=== PATIENT | male | born 1950 | race Caucasian/White ===

== ENCOUNTER 2025-04-15 07:14 | Outpatient (CLI) | payer MEDICARE, MEDICAID, SELFPAY ==
--- NOTE | 2025-04-15 | ECHO_ITS ---
Patient Info Name: Sy Greenfield Age: 74 years : 1950 Gender: Male Ht: 72 in Wt: 196 lbs BSA: 2.14 m2 HR: 66 bpm BP: 153 / 93 mmHg Heart Rhythm: Sinus Rhythm Technical Quality: Good Exam Date: 04/15/2025 7:40 AM Patient Status: O Admit Date: 04/15/2025 Exam Type: CA echo doppler color flow Complete two-dimensional, color flow and Doppler transthoracic echocardiogram is performed. [employer] Cloth: Karime Garcia Attending Provider: Benjie Nunez Summary 1. Left ventricular chamber dimension is normal. 2. Left ventricular systolic function is normal, estimated at 55-60. 3. There is mildly increased left ventricular wall thickness. 4. The left ventricular diastolic function is grade I diastolic dysfunction. 5. Right ventricular systolic function is normal. 6. There is mild mitral valve regurgitation. 7. There is mild tricuspid valve regurgitation. Left Ventricle Left ventricular chamber dimension is normal. Left ventricular systolic function is normal, estimated at 55-60. There is mildly increased left ventricular wall thickness. The left ventricular diastolic function is grade I diastolic dysfunction. Right Ventricle Right ventricular chamber dimension is normal. Right ventricular systolic function is normal. Left Atria Left atrial chamber dimension is normal. Right Atria Right atrial chamber dimension is normal. Atrial Septum Intact interatrial septum visualized by color flow imaging. Aortic Valve The aortic valve is not well visualized. There is no aortic valve stenosis. There is no aortic valve regurgitation. Pulmonic Valve The pulmonic valve is not well visualized. Mitral Valve There is mild mitral valve regurgitation. Tricuspid Valve There is mild tricuspid valve regurgitation. Pericardium/Pleural There is no pericardial effusion. Inferior Vena Cava Normal inferior vena cava with >50% collapse upon inspiration consistent with normal right atrial pressure, 3 mmHg. Aorta The aortic root size at the sinus of Valsalva is normal. Left Ventricular Outflow Tract Name Value Normal LVOT 2D LVOT Diameter 2.0 cm LVOT Doppler LVOT Peak Velocity 117 cm/s LVOT Peak Gradient 5 mmHg LVOT Mean Gradient 3 mmHg LVOT VTI 23 cm LVOT VTI/AV VTI Ratio 0.7 LVOT Stroke Volume 76 ml LVOT CO 4.1 l/min LVOT CI 1.9 l/min/m2 Pulmonic Valve Name Value Normal RVOT Doppler RVOT Peak Velocity 77 cm/s RVOT Peak Gradient 2 mmHg PV Doppler PV Peak Velocity 83 cm/s PV Peak Gradient 3 mmHg Mitral Valve Name Value Normal MV Diastolic Function MV E Peak Velocity 59 cm/s MV A Peak Velocity 83 cm/s MV E/A 0.7 MV Decel Time (PW) 328 ms MV Annular TDI MV E/e' (Septal) 12.1 MV E/e' (Lateral) 7.1 MV E/e' (Average) 9.6 Tricuspid Valve Name Value Normal TV Regurgitation Doppler TR Peak Velocity 233 cm/s TR Peak Gradient 17 mmHg Estimated PAP/RSVP RA Pressure 3 mmHg <=5 PA Systolic Pressure 25 mmHg <36 RV Systolic Pressure 25 mmHg <36 TV Annular TDI TV Lateral Carolynn s' Velocity 13.9 cm/s >=9.5 Aorta Name Value Normal Ascending Aorta Ao Root Diameter (MM) 3.4 cm Ao Root Diam Index (MM) 1.6 cm/m2 Aortic Valve Name Value Normal AV Doppler AV Peak Velocity 169 cm/s AV Peak Gradient 11 mmHg AV Mean Gradient 6 mmHg AV VTI 35 cm AV Area (Cont Eq VTI) 2.2 cm2 >=3.0 AV Area (Cont Eq James) 2.3 cm2 AV DI (James) 0.69 AV Regurgitation 2D LVOT Area 3.3 cm2 Ventricles Name Value Normal LV Dimensions 2D/MM IVS Diastolic Thickness (2D) 0.9 cm 0.6-1.0 LVID Diastole (2D) 5.5 cm 4.2-5.8 LVIW Diastolic Thickness (2D) 1.0 cm 0.6-1.0 LVID Systole (2D) 3.5 cm 2.5-4.0 LVOT Diameter 2.0 cm LV Mass (2D Cubed) 200.85 g 88.00-224.00 LV Mass Index (2D Cubed) 94 g/m2 49-115 Relative Wall Thickness (2D) 0.37 <=0.42 LV Fractional Shortening/Ejection Fraction 2D/MM LV Fractional Shortening (2D) 37 % 25-43 LV EF (2D Teichholz) 66 % LV Diastolic Volume (4C MOD) 66 ml LV EF (4C MOD) 60 % LV Diastolic Volume (2C MOD) 89 ml LV EF (2C MOD) 68 % LV Diastolic Volume (BP MOD) 78 ml 62-150 LV Diastolic Volume Index (BP MOD) 36 ml/m2 34-74 LV Systolic Volume (BP MOD) 28 ml 21-61 LV Systolic Volume Index (BP MOD) 13 ml/m2 11-31 LV EF (BP MOD) 63 % 52-72 LV Diastolic Length (4C) 8.4 cm LV Systolic Length (4C) 6.7 cm LV Stroke Volume (4C MOD) 40 ml Atria Name Value Normal LA Dimensions LA Dimension (MM) 4.0 cm 3.0-4.0 LA Volume (4C A-L) 68 ml LA Volume (BP A-L) 67 ml RA Dimensions RA Systolic Major [place] Length (4C) 5.6 cm 2.1-2.7 RA Area (4C) 17.1 cm2 <=18.0 Report Signatures
--- OUTSIDE RECORDS SUMMARY | 2025-04-15 07:24 | XMS_ITS | Data Portability ---
Author Organization [facility] Address [address] [facility] [place] [address] Care Team Providers Care Tissue Technician Name Role Phone DOMINICK GUZMAN Primary Care Provider Unavailab le Assessment Encounter Date Assessment Date Assessment LastModified by Organization Details LastModified Time 06/16/2024 06/16/2024 Pt's case was discussed w/resident. Documentation was reviewed, and I agree w/resident's note. Dr. Holt Not available 06/22/2024 08:10:00 Plan of Treatment Reminders Order Date Submit Date Provider Last Modified By Organization Details Last Modified Time Details Appointments ANY 15 2024 08:45A M DOMINICK GUZMAN MD Not available Not available Not available Lab CMP, serum or plasma 2023 JACOBYJASMYN Iqbal, [address], [place], [address], 09/06/2024 13:10:24 lipid panel, serum 2023 024 JACOBYJASMYN Iqbal, [address], [place], [address], 09/06/2024 13:10:22 vitamin B12 + folate, serum or blood 2023 024 JACOBY Farida, [address], [address], [place], [address], 09/06/2024 13:10:26 TSH, ultra-sen sitive, serum 2023 024 JACOBYJASMYN Iqbal, [address], [address], [place], [address], 09/06/2024 13:10:23 noninvasi ve colorecta l cancer DNA + occult blood screening , QL, stool 2023 024 [place] [employer] (Cologuard Orders Only), [address], [address], [place], [address], 07/04/2024 17:09:20 Referral urologist referral 2023 024 [facility], [address] [facility], [address], [place], [address], 08/19/2024 16:01:27 Procedures None recorded. Surgeries None recorded. Imaging None recorded. Medication Orders Wellbutri n XL 150 mg 24 hr tablet, extended release 2023 [place] [id number], [address], [place], [place], [id number], 09/05/2024 10:06:16 Wellbutri n XL 150 mg 24 hr tablet, extended release 2023 024 [place] [id number], [address], [place], [place], [id number], 06/16/2024 20:32:02 Patient TargetsNo targets recorded. Patient Instructions Encounter Date Encounter Id Patient Instructions Last Modified By Organization Details Last Modified Time 06/16/2024 [id number] learning about mood disorders rgriffon Not available 06/16/2024 20:31:56 09/05/2024 [id number] learning about high blood pressure rgriffon Not available 09/05/2024 10:00:05 neuropathic pain : care instructions rgriffon Not available 09/05/2024 10:00:05 Attending Physician Attestation I did not personally see or examine the patient with the resident. I was physically present to provide indirect supervision through entire encounter. I have reviewed the documentation and agree with the history, physical findings, work-up, and medical decision making as recorded. Krystin Mckinley MD mmetias Not available 09/05/2024 11:42:27 Reason for Referral Urologist Referral for Erect ile dysfunction Referring Physician: Dominick Guzman, Marine Farmer, Encounter Date: 06/16/2024 Results Created Date Observation Date Name Description Value Unit Range Abnormal Flag Note LastModifiedBy Organization Detail LastModifiedTime 07/06/20 24 07/06/2024 COLOG UARD cologuard result reportable Sample Could Not Be Proces sed n/a The speci men recei edgardo by the labor atory was not accep table for testi ng. The patie nt will be conta cted to initi ate a new sampl e colle ction . Not Available [employer] (Cologuard Orders Only) [address], [place], [address], 07/04/2024 17:09:19 07/14/20 24 07/14/2024 COLOG UARD cologuard result reportable Negati ve negati ve normal NEGAT LUIS TEST RESUL T. A negat luis Colog uard resul t indic ates a low likel ihood that a color ectal cance r (CRC) or advan patt adeno ma (priscila omato us polyp s with more advan patt pre-m align ant featu res) is prese nt. The chanc e that a perso n with a negat luis Colog uard test has a color ectal cance r is less than 1 in 1500 (nega tive predi ctive value >99.9 %) or has an advan patt adeno ma is less than 5.3% (nega tive predi ctive value 94.7% ). These data are based on a prosp ectiv e cross -sect ional study of 10,00 0 indiv idual s at [place] risk for color ectal cance r who were scree kori with both Colog uard and colon oscop y. (Donta Piedra et al, N Engl J Med 2014; 370(1 4):12 86-12 97) The link l value (refe rence range ) for this assay is negat luis. COLOG UARD RE-SC REEXIOMARA NG RECOM MENDA TION: Perio dic color ectal cance r scree fanny is an impor tant part of preve ntive healt hcare for asymp tomat ic indiv idual s at [facility] risk for color ectal cance r. Follo wing a negat luis Colog uard resul t, the Ameri can Cance r Socie ty and U.S. Multi -Soci ety Task Force scree afnny guide lines recom mend a Colog uard re-sc reeni ng inter matt of 3 years . Refer ences : Ameri can Cance r Socie ty Guide line for Color ectal Cance r Scree fanny: https ://andrea w.can cer.o rg/ca ncer/ colon -rect al-ca ncer/ detec tion- diagn osis- stagi ng/ac s-rec ommen datio ns.ht ml.; Bradly BENTLEY, Brandie ANDERSON, Haim CH, Color ectal Cance r Scree fanny: Recom menda tions for Physi cians and Patie nts from the U.S. Multi -Soci ety Task Force on Color ectal Cance r Scree fanny , Am J Gastr yanet emery y 2017; 112:1 016-1 030. TEST DESCR IPTIO N: Mullin site algor ithmi c ar sis of stool DNA-b ioabhishek kers with hemog lobin immun oassa y. Quant itati ve value s of indiv idual bioma rkers are not repor table and are not assoc iated with indiv idual bioma rker resul t refer ence range s. Colog uard is inten ded for color ectal cance r scree fanny of adult s of eithe r sex, 45 years or older , who are at [facility] for color ectal cance r (CRC) . Colog uard has been appro edgardo for use by the U.S. FDA. The perfo rmanc e of Colog uard was estab lishe d in a cross secti onal study of [facility] adult s aged 50-84 . Colog uard perfo rmanc e in patie nts ages 45 to 49 years was estim ated by sub-g roup ar sis of near- age group s. Colon oscop ies perfo rmed for a posit luis resul t may find as the most clini serge signi iona t lesio n: color ectal cance r [4.0% ], advan patt adeno ma (incl uding sessi le surendra nellie polyp s great er than or equal to 1cm diame ter) [20%] or non- advan patt adeno ma [31%] ; or no color ectal neopl aayush [45%] . These estim ates are deriv ed from a prosp ectiv e cross -sect ional scree fanny study of 0 indiv idual s at [facility] for color ectal cance r who were scree kori with both Colog uard and colon oscop y. (Donta Ortiz al, N Engl J Med 2014; 370(1 4):12 86-12 97.) Colog uard may produ ce a false negat luis or false posit luis resul t (no color ectal cance r or preca ncero us polyp prese nt at colon oscop y follo w up). A negat luis Colog uard test resul t does not guara ntee the absen ce of CRC or advan patt adeno ma (pre- cance r). The curre nt Colog uard scree fanny inter matt is every 3 years . (Amer ican Cance r Socie ty and U.S. Multi -Soci ety Task Force ). Colog uard perfo rmanc e data in a 0 patie nt pivot al study using colon oscop y as the refer ence metho d can be acces sed at the follo wing locat ion: www.e xactl abs.c om/re dario . Addit ional descr iptio n of the Colog uard test proce ss, warni ngs and preca ution s can be found at www.c beverly wu.c om. Not Available [employer] (Cologuard Orders Only) [address], [place], [address], 07/19/2024 17:49:55 09/05/20 24 09/06/2024 LIPID PANEL cholesterol, total 122 mg/dL 100-19 9 Not Available [facility] ([facility]) [address] [place], [address], 09/06/2024 13:10:22 09/05/20 24 09/06/2024 LIPID PANEL triglyceride s 58 mg/dL 0-149 Not Available [facility] ([facility]) [address] [place], [address], 09/06/2024 13:10:22 09/05/20 24 09/06/2024 LIPID PANEL HDL cholesterol 47 mg/dL >39 Not Available [facility] ([facility]) [address] [place], [address], 09/06/2024 13:10:22 09/05/20 24 09/06/2024 LIPID PANEL VLDL cholesterol chava 13 mg/dL 5-40 Not Available [facility] ([facility]) [address] [place], [address], 09/06/2024 13:10:22 09/05/20 24 09/06/2024 LIPID PANEL LDL chol calc ([facility]) 62 mg/dL 0-99 Not Available [facility] ([facility]) [address] [place], [address], 09/06/2024 13:10:22 09/05/20 24 09/06/2024 TSH REFLE X TO T4 TSH 1.350 uIU/m L 0.450- 4.500 Not Available [facility] ([facility]) [address] [place], [address], 09/06/2024 13:10:23 09/05/20 24 09/06/2024 CMP14 +EGFR glucose 88 mg/dL 70-99 Not Available [facility] ([facility]) [address] [place], [address], 09/06/2024 13:10:24 09/05/20 24 09/06/2024 CMP14 +EGFR BUN 24 mg/dL 8-27 Not Available [facility] ([facility]) [address] [facility], [place], [address], 09/06/2024 13:10:24 09/05/20 24 09/06/2024 CMP14 +EGFR creatinine 1.17 mg/dL 0.76-1 .27 Not Available [facility] ([facility]) [address] [facility], [place], [address], 09/06/2024 13:10:24 09/05/2009/06/2024 CMP14 +EGFR eGFR 66 mL/mi n/1.7 3 >59 Not Available [facility] ([facility]) [address] [facility], [place], [address], 09/06/2024 13:10:24 09/05/20 24 09/06/2024 CMP14 +EGFR BUN/creatini ne ratio 21 10-24 Not Available [facility] ([facility]) [address] [facility] [place], [address], 09/06/2024 13:10:24 09/05/20 24 09/06/2024 CMP14 +EGFR sodium 140 mmol/ L 134-14 4 Not Available [facility] ([facility]) [address] [facility], [place], [address], 09/06/2024 13:10:24 09/05/2009/06/2024 CMP14 +EGFR potassium 4.8 mmol/ L 3.5-5. 2 Not Available [facility] ([facility]) [address] [place], [address], 09/06/2024 13:10:24 09/05/20 24 09/06/2024 CMP14 +EGFR chloride 106 mmol/ L 96-106 Not Available [facility] ([facility]) [address] [place], [address], 09/06/2024 13:10:24 09/05/2009/06/2024 CMP14 +EGFR carbon dioxide, total 24 mmol/ L 20- Not Available [facility] ([facility]) [address] [facility], [place], [address], 09/06/2024 13:10:24 09/05/2009/06/2024 CMP14 +EGFR calcium 9.4 mg/dL 8.6-10 .2 Not Available [facility] ([facility]) [address] [facility], [place], [address], 09/06/2024 13:10:24 09/05/2009/06/2024 CMP14 +EGFR protein, total 6.9 g/dL 6.0-8. 5 Not Available [facility] ([facility]) [address] [facility], [place], [address], 09/06/2024 13:10:24 09/05/2009/06/2024 CMP14 +EGFR albumin 4.1 g/dL 3.8-4. 8 Not Available [facility] ([facility]) [address] [facility], [place], [address], 09/06/2024 13:10:24 09/05/2009/06/2024 CMP14 +EGFR globulin, total 2.8 g/dL 1.5-4. 5 Not Available [facility] ([facility]) [address] [place], [address], 09/06/2024 13:10:24 09/05/2009/06/2024 CMP14 +EGFR bilirubin, total 0.4 mg/dL 0.0-1. 2 Not Available [facility] ([facility]) [address] [facility], [place], [address], 09/06/2024 13:10:24 09/05/2009/06/2024 CMP14 +EGFR alkaline phosphatase 69 IU/L 44-121 Not Available [facility] ([facility]) [address] [facility], [place], [address], 09/06/2024 13:10:24 09/05/20 24 09/06/2024 CMP14 +EGFR AST (SGOT) 17 IU/L 0-40 Not Available [facility] ([facility]) [address] [facility], [place], [address], 09/06/2024 13:10:24 09/05/20 24 09/06/2024 CMP14 +EGFR ALT (SGPT) 15 IU/L 0-44 Not Available [facility] ([facility]) [address] [facility], [place], [address], 09/06/2024 13:10:24 09/05/20 24 09/06/2024 VITAM IN B12 AND FOLAT E vitamin B12 465 pg/mL 232-12 45 Not Available [facility] ([facility]) [address] [facility], [place], [address], 09/06/2024 13:10:26 09/05/2009/06/2024 VITAM IN B12 AND FOLAT E folate (folic acid), serum 10.3 NG/mL >3.0 A serum folat e lei ntrat ion of less than 3.1 ng/mL is consi dered to repre sent clini chava defic iency . Not Available [facility] ([facility]) [address] [facility], [place], [address], 09/06/2024 13:10:26 Result Notes None recorded. Problems Name Problem SNOMED Code Status Onset Date Resolution Date Notes Provider Name and Address Organization Details Recorded Time Hyperlipid emia 99190406 Active 2023 DOMINICK GUZMAN MD Attn: Treva pope,[address], [place], [address], [facility] 14:18:06 Cerebrovas cular accident 307294471 Active 2023 DOMINICK GUZMAN MD Attn: Treva pope,[address] [facility], [place], [address], [place] [facility] 4 14:18:36 Basal cell carcinoma of skin 203515622 Active 2023 DOMINICK GUZMAN MD Attn: Treva pope,[address] [facility], [place], [address], [place] [facility] 4 21:31:07 Osteoarthr itis 300077968 Active 2023 DOMINICK GUZMAN MD Attn: Treva pope,[address] [facility], [place], [address], [place] [facility] 4 11:01:15 Coronary arterioscl erosis 21300260 Active 2023 DOMINICK GUZMAN MD Attn: Treva pope,[address] [facility], [place], [address], [place] [facility] 4 11:02:34 Essential hypertensi on 61467447 Active 2023 DOMINICK GUZMAN MD Attn: Treva pope,[address] [facility], [place], [address], [place] - [facility] 4 11:02:48 Screening due 525135007 Active 2023 Pneumonia vaccines UTD cologuard neg 2020, repeat in 3 years AAA screening neg 11/27/2016 Hep C screening neg 07/2018 * shingles vaccine needed Tdap due 2027 DOMINICK GUZMAN MD Attn: Sandireynold pope,[address] [facility], [place], [address], [place] - [facility] 4 11:03:14 Problem Notes None recorded. Procedures Surgical History Date Name Laterality Status Provider Name and Address Organization Details Recorded Time 1 total knee replacement completed DOMINICK GUZMAN MD Attn: Accounting,[address] [facility], [place], [address], [place] [facility] 06/16/2024 14:23:09 Imaging Results None recorded. Procedure Notes None recorded. Medical Equipment None Reported. Allergies No known drug allergies Medications Name Sig Start Date Stop Date Status Note LastModified by Organization Details LastModified Time atorvasta tin 80 mg tablet TAKE 1 TABLET BY MOUTH EVERY DAY active Not Available Not Available No t Available carvedilo l 12.5 mg tablet TAKE 1 TABLET BY MOUTH TWICE DAILY active Not Available Not Available No t Available famotidin e 10 mg tablet Take 1 tablet every day by oral route. active Not Available Not Available No t Available clopidogr el 75 mg tablet TAKE 1 TABLET BY MOUTH EVERY DAY 06/16 completed Not Available Not Available Not Available amlodipin e 10 mg tablet 2023 active Not Available Not Available Not Avai lable losartan 100 mg tablet TAKE 1 TABLET BY MOUTH DAILY active Not Available Not Available No t Available naproxen 500 mg tablet TAKE 1 TABLET BY MOUTH TWICE DAILY active Not Available Not Available No t Available ezetimibe 10 mg tablet TAKE 1 TABLET BY MOUTH DAILY active Not Available Not Available No t Available Wellbutri n XL 150 mg 24 hr tablet, extended release Take 1 tablet(s ) every day by oral route. 2024 active Not Available Not Available Not Avai lable saw palmetto 450mg capsule 2 caps twice daily. active Not Available Not Available No t Available tadalafil 40mg tablet prn active Not Available Not Available No t Available icosapent ethyl 1 gram capsule TAKE 2 CAPSULES BY MOUTH TWICE DAILY active Not Available Not Available No t Available Farxiga 10 mg tablet TAKE 1 TABLET BY MOUTH ONCE DAILY 06/16 completed Not Available Not Available Not Available Jardiance 10 mg tablet TAKE 1 TABLET BY MOUTH DAILY active Not Available Not Available No t Available Xarelto 2.5 mg tablet TAKE 1 TABLET BY MOUTH TWICE DAILY active prescrib ed by cardio Not Available Not Available Not Available Vitals Date Recorded Body height Body mass index (BMI) Body weight Body temperature Heart rate Respiratory rate Systolic blood pressure Diastolic blood pressure Provider Name and Address Organization Details Last Updated DateTime 4 182.88 cm 26.4 kg/m2 84852.7 2 g 98.7 [degF] 59 /min 18 /min 155 mm[Hg] 78 mm[Hg] Yuri Thomas [place] - [facility] 4 14:05:04 Date Recorded Body height Body mass index (BMI) Body weight Body temperature Heart rate Respiratory rate Systolic blood pressure Diastolic blood pressure Provider Name and Address Organization Details Last Updated DateTime 182.88 cm 26.6 kg/m2 00751.5 g 98.3 [degF] 68 /min 18 /min 140 mm[Hg] 80 mm[Hg] Huma Mustafa [place] - [facility] 08:36:05 Social History Question Answer Notes LastModified by [employer] Details LastModified Time Tobacco Smoking Status Former Smoker quit in 89 bc of stroke. Yuri Thomas MA null, [place] - [facility] 06/16/2024 14:02:53 What Was The Date Of Your Most Recent Tobacco Screening? 09/05/2024 Information not available 09/05/2024 At What Age Did You Start Smoking Tobacco? 12 Information not available 06/16/2024 How Much Tobacco Do You Smoke? 3+ PPD Information not available 06/16/2024 Has Tobacco Cessation Counseling Been Provided? Yes Information not available 09/05/2024 On What Date Was Tobacco Cessation Counseling Provided? 09/05/2024 Information not available 09/05/2024 Sex: Male Functional Status Question Answer Note LastModified by [employer] Details LastModified Time Do you use any illicit or recreational drugs? Yes medical marijuna Information not available 06/16/2024 Do you or have you ever used any other forms of tobacco or nicotine? No Information not available 06/16/2024 What is your level of alcohol consumption? Occasional Information not available 06/16/2024 Mental Status None recorded. Family History Relationship Description Onset Age of this Age Resolved Age Notes LastModified by Organization Details LastModified Time Father Heart disease etodaroma Not available 2023 14:00:35 Father Total replacement of hip etodaroma Not available 2023 14:01:08 Mother Asthma in etodaroma Not available 06/16/2024 14:01:30 Medical History No medical history recorded. Immunizations Vaccine Type Date Status Note Provider Nam e and Address Organization Details Recorded Time Influenza, split virus, quadrivalent, preservative 7 completed KRYSTIN MCKINLEY MD Attn: Accounting,[address] [facility], [place], [place], [address] [place] [address], [place] [facility] 09/05/2024 11:29:21 Influenza, split virus, quadrivalent, preservative 8 completed KRYSTIN MCKINLEY MD Attn: Accounting,[address] [facility], [place], [place], [address] [place] [address], [place] [facility] 09/05/2024 11:29:21 Influenza, adjuvanted, trivalent, PF 9 completed KRYSTIN MCKINLEY MD Attn: Accounting,[address] [facility], [place], [address] [place] [address], [place] [facility] 09/05/2024 11:29:21 zoster recombinant 2 completed KRYSTIN MCKINLEY MD Attn: Accounting,[address] [facility], [place], [address] [place] [address], [place] [facility] 09/05/2024 11:29:21 zoster recombinant 2 completed KRYSTIN MCKINLEY MD Attn: Accounting,[address] [facility], [place], [address] [place] [address], [place] [facility] 09/05/2024 11:29:21 Influenza, high-dose, quadrivalent, PF 2 completed KRYSTIN MCKINLEY MD Attn: Accounting,[address] [facility], [place], [address] [place] [address], [place] [facility] 09/05/2024 11:29:21 Influenza, high-dose, quadrivalent, PF 3 completed KRYSTIN MCKINLEY MD Attn: Accounting,[address] [facility], [place], [address] [place] [address], [place] [facility] 09/05/2024 11:29:21 Influenza, adjuvanted, quadrivalent, PF 1 completed KRYSTIN MCKINLEY MD Attn: Accounting,[address] [facility], [place], [address] [place] [address], [place] [facility] 09/05/2024 11:29:21 COVID-19, mRNA, LNP-S, PF, 100 mcg/0.5mL dose or 50 mcg/0.25mL dose 1 completed KRYSTIN MCKINLEY MD Attn: Accounting,[address] [facility], [place], [address] [place] [address], [place] [facility] 09/05/2024 11:29:21 COVID-19, mRNA, LNP-S, PF, 100 mcg/0.5mL dose or 50 mcg/0.25mL dose 1 completed KRYSTIN MCKINLEY MD Attn: Accounting,[address] [facility], [place], [address] [place] [address], [place] [facility] 09/05/2024 11:29:21 COVID-19, mRNA, LNP-S, PF, 100 mcg/0.5mL dose or 50 mcg/0.25mL dose 2 completed KRYSTIN MCKINLEY MD Attn: Accounting,[address] [facility], [place], [address] [place] [address], [place] [facility] 09/05/2024 11:29:21 COVID-19, mRNA, LNP-S, PF, 100 mcg/0.5mL dose or 50 mcg/0.25mL dose 1 completed KRYSTIN MCKINLEY MD Attn: Accounting,[address] [facility], [place], [address] [place] [address], [place] [facility] 09/05/2024 11:29:21 COVID-19, mRNA, LNP-S, bivalent, PF, 50 mcg/0.5 mL or 25mcg/0.25 mL dose 2 completed KRYSTIN MCKINLEY MD Attn: Accounting,[address] [facility], [place], [address] [place] [address], [place] [facility] 09/05/2024 11:29:21 COVID-19, mRNA, LNP-S, PF, jojo-sucrose, 30 mcg/0.3 mL 3 completed KRYSTIN MCKINLEY MD Attn: Accounting,[address] [facility], [place], [address] [place] [address], [place] [facility] 09/05/2024 11:29:21 pneumococcal polysaccharide PPV23 8 completed KRYSTIN MCKINLEY MD Attn: Accounting,[address] [facility], [place], [place], [address] [place] [address], [facility] 09/05/2024 11:29:21 Tdap 1 completed KRYSTIN MCKINLEY MD Attn: Accounting,[address] [facility], [place], [address] [place] [address], [place] [facility] 09/05/2024 11:29:21 Pneumococcal conjugate PCV 13 9 completed KRYSTIN MCKINLEY MD Attn: Accounting,[address] [facility], [place], [address] [place] [address], [facility] 09/05/2024 11:29:21 Influenza, high-dose, trivalent, PF 5 completed KRYSTIN MCKINLEY MD Attn: Accounting,[address] [facility], [place], [address] [place] [address], [facility] 09/05/2024 11:29:21 Influenza, high-dose, trivalent, PF 8 completed KRYSTIN MCKINLEY MD Attn: Accounting,[address] [facility], [place], [address] [place] [address], [facility] 09/05/2024 11:29:21 Influenza, split virus, trivalent, PF 0 completed KRYSTIN MCKINLEY MD Attn: Accounting,[address] [facility], [place], [address] [place] [address], [place] [facility] 09/05/2024 11:29:21 Pneumococcal Conjugate, unspecified formulation 6 completed KRYSTIN MCKINLEY MD Attn: Accounting,[address] [facility], [place], [address] [place] [address], [place] [facility] 09/05/2024 11:29:21 RSV, recombinant, protein subunit RSVpreF, adjuvant reconstituted, 0.5 mL, PF 4 completed KRYSTIN MCKINLEY MD Attn: Accounting,[address] [facility], [place], [address] [place] [address], [place] [facility] 09/05/2024 11:29:34 COVID-19, mRNA, LNP-S, PF, jojo-sucrose, 30 mcg/0.3 mL 4 completed KRYSTIN MCKINLEY MD Attn: Accounting,[address] [facility], [place], [address], [facility] - [facility] 09/05/2024 11:29:34 Influenza, high-dose, trivalent, PF 4 completed KRYSTIN MCKINLEY MD Attn: Accounting,[address] [facility], [place], [address], [facility] 09/05/2024 11:29:34 Past Encounters Encounter ID Performer Location Encounter Start Date Encounter Closed Date Diagnosis/Indication Diagnosis SNOMED-CT Code Diagnosis ICD10 Code Diagnosis Note [id number] MD Brien Dunham 14 IM 4 [facility] [facility] [place] [address] 06/16/2024 13:37:59 06/23/2024 08:40:25 Screening for malignant neoplasm of colon [id number] Z12.11 Cologuard normal in 2020. Normal colonoscop y over 10 years ago. No fam hx of colon cancer. Would like to repeat cologuard. Depressive disorder [id number] F32.A Mood has been down since dad almost a year ago. Also mentions mood is down due to erectile dysfunctio n. PHQ-9 7 and IZABELA-7 15. Declines therapy. Would like to start a medication . Will start wellbutrin as less likely to cause sexual side effects. Will follow up in a couple of months. Erectile dysfunction [id number] F52.21 No known diabetes or artery disease although based on med record possibly artery disease. Will need to see records. Per med list does appear to have artery disease. Phosphodie sterase inhibitors have not helped. Will send referral to urology. Essential hypertension [id number] I10 Takes carvedilol 12.5 mg and losartan 100 mg daily. BP elevated today. Will monitor at home call if elevated. [id number] MD Brien LUCAS 14 IM [address] [facility] [place] [address] 09/05/2024 08:20:44 09/12/2024 10:45:17 Depressive disorder [id number] F32.A Mood has been down since dad almost a year ago. Also mentions mood is down due to erectile dysfunctio n.Started Wellbutrin 150 mg 06/16. Here for follow up. Has noticed some improvemen t. Feels more relaxed vs on edge. Was started due to less potential for sexual side effects.PH Q-9 9 from 7; IZABELA-7 9 from 15. Coronary arteriosclerosis [id number] I25.10 Previous hx of CAD. Per patient is following with Dr. Nunez. No record found. Will check cholestero l panel. continue atorvastat in 80 mg dialy and ezetimibe 10 mg daily. Neuropathy [id number] G62 .9 Subjective numbness in toes of right foot and ball of foot. Possibly nerve entrapment syndrome in the foot or ankle. Possibly medial plantar nerve entrapment given distributi on of symptoms. Numbness does not radiate down leg. At increased risk due to significan t diffuse arthritis. No new activities that are aggravatin g. Less likely radiculopa thy from lumbar area. No concern for myelopathy . No muscle weakness. Reflexes are symmetric. No foot drop. Did offer PT but is doing home exercises and stretches that he found online. Discussed will call for continued symptoms. Could consider PT or nerve conduction studies. Symptomati serge could treat with gabapentin but will try conservati ve therapy first. Essential hypertension [id number] I10 Takes carvedilol 12.5 mg, amlodipine 10 mg and losartan 100 mg daily. BP elevated today. At home has been elevated in the 160s systolic. Here is 140/80. Will check BMP and if kidney function is normal will start chlorthali done. Health Concerns Section Related Observation LastModified by Organization Detai ls LastModified Time None Recorded Concern Status LastModified by Organization Details LastModified Time None Recorded Advance Directives Directive None Recorded Payers Insurance Date Sequence Insurance Name Policy Number Policy Kaplan Covered Member ID Kaplan Member ID Guarantor Name 09/05/2024 3 [place] Sy Greenfield [id number] Sy Greenfield 06/26/2024 3 [place] Sy Greenfield [id number] Sy Greenfield 06/26/2024 1 [place] Sy Greenfield [id number] Sy Greenfield 09/12/2024 1 [facility] (MEDICARE REPLACEMENT/AD VANTAGE - HMO) [id number] Sy Greenfield [id number] Sy Greenfield 08/26/2024 3 [place] Sy Greenfield [id number] Sy Greenfield 09/05/2024 2 [place] WHEN MEDICARE OR MEDICARE REPLACEMENT PRIMARY) Sy Greenfield [id number] Sy Greenfield Notes Date Note Type Note Provider Name and Address Organization Details Recorded Time 4 text/html Sy is a 73 year old man with history of hyperlipidemia, hypertension, prior CVA, on anticoagulation who presents to the clinic to establish care. Reports his prior PCP no longer takes his insurance. He also sees cardiology. Denies hx of atrial fibrillation. Mentions he had a stroke in 1990 and was told it was due to his heart valve. Denies hx of heart valve replacement. Record releases were signed. Current issuesArthritisReports arthritis pain. R knee, hands, right shoulder and back. Back is most problematic. [place] and is quite active. 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 Hx of left knee replacement in 1990 due to OA. Has been taking 500 mg of naproxen and 500 mg of tylenol in the AM and PM but states pain wakes him up at about 4 AM from sleep. Denies having tried physical therapy. No numbness or weakness in the legs. Erectile dysfunctionHas been an issue for the past 7 years. Reports difficulties achieving and maintaining an erection. Tried viagra but reported headaches. Has been using cialis but reports it doesn't help much. Denies hx of diabetes. Denies hx of heart disease (although is on jardiance?). Denies having seen urology in the past but mentions at 1 point was using an external penile pump. DepressionMentions his dad in the fall which has been stressful but also complicated by trying to manage his property. Has been restless and having difficulty focusing. Denies wanting to speak to therapist. Does want to start a medication. No SI. ADLsNo problems with bathing, dressing, cleaning, cooking, driving.No falls in the past year. Glen Holt MD Attn: Accounting,[address] [facility], [place], [address], [facility] 06/22/2024 08:10:12 4 text/html Sy is a 73 y/o M with hx of CAD, OA seeing pain management, on chronic xarelto, depression, hypertension, lumbar spondylosis, remote hx of CVA in the 90s, erectile dysfunction and prior elevated PSA following with urology who presents to the clinic for follow up of depression. Depression-Doing better after starting wellbutrin. Has been taking daily. Would like to continue medication. Hypertension- Home readings have been up to 160s systolic. Occasionally less than 140 systolic. Is taking all medications and actually is taking amlodipine 10 mg as well. Also taking carvedilol 12.5 mg dialy. Per home reading pulse is typically in the 60s and occasionally in the 50s. No syncope or light headedness. Numbness in left foot- States over the past couple of weeks has been having numbness in toes and ball of foot. Has never had this before. Denies muscle weakness. Erectile dysfunction- Did follow up with urology [employer] and was recommended to have tadalafil 5 mg daily and 5-15 mg PRN. States occasionally will help but not always. Per chart will consider TriMix at follow up in a couple of months if no improvement. Patient care teamCardiology- SerotaPain management- ?Urology- JOSE Savage MD Attn: Accounting,[address] [place], [address], [facility] 09/10/2024 16:02:40
--- OUTSIDE RECORDS SUMMARY | 2025-04-15 07:24 | XMS_ITS | Clinical Summary ---
Author Organization [facility] Address [address] [place] [address] Care Team Providers Care Senior Actuarial Analyst Name Role Phone Mayank Rowland MD Unavailable [phone] Source Comments [facility],non-owned Affiliates and Associated Physician Practices is amultiple site organization consisting of ambulatory clinics and hospital sitesin [place], [place], [place] and [place]. This disclosure is being madepursuant to the Care Everywhere program and may not contain all information available regarding this patient. Last updated 18.[facility] Allergies No known active allergies Medications * Be aware that medications may not be up to date on this document. Alwaysverify current medications with the patient. atorvastatin (LIPITOR) 10 MG tablet Take 10 mg by mouth at bedtime Active BABY ASPIRIN PO Take 81 mg by mouth once daily Active Acetaminophen (TYLENOL EXTRA STRENGTH PO) Take 1 Tab by mouth every 6 hours as needed Active fluticasone propionate (FLONASE) 50 MCG/ACT nasal spray 2 6 Active methylPREDNISol one (MEDROL DOSEPAK) 4 MG tabletIndicatio ns:Inflammation Take as directed Reasons: Inflammation 21 Tab 6 Active spironolactone (ALDACTONE) 25 MG tabletIndicatio ns:Pes anserinus bursitis of right knee Take 25 mg by mouth once daily 6 Active nabumetone (RELAFEN) 750 MG tablet Take 1 tablet by mouth 2 times daily LAST REFILL UNTIL SEEN IN OFFICE - NEEDS APPOINTMENT 60 tablet 8 Active Active Problems Problem Noted Date Diagnosed Date Pes anserine bursitis 09/18/2016 Primary osteoarthritis of right knee 02/03/2016 Social History Tobacco Use Types Packs/Day Years Used Date Smoking Tobacco: Unknown Alcohol Use Standard Drinks/Week Comments Not Asked 0 (1 standard drink = 0.6 oz pur e alcohol) Sex and Gender Information Value Date Recorded Sex Assigned at Not on file Legal Sex Male 11:44 AM [employer] Gender Identity Not on file Sexual Orientation Not on file Last Filed Vital Signs Vital Sign Reading Time Taken Comments Blood Pressure - - Pulse - - Temperature - - Respiratory Rate - - Oxygen Saturation - - Inhaled Oxygen Concentration - - Weight 111.1 kg (245 lb) 02/03/2016 2:53 PM CDT Height 182.9 cm (6') 02/03/2016 2:53 PM CDT Body Mass Index 33.23 02/03/2016 2:53 PM CDT Plan of Treatment Health Maintenance Due Date Last Done Comments COLOGUARD (AGES 45-75) - COL ON CA SCREENING 1950 COLON MONITORING 1950 COLONOSCOPY - COLON CA SCREENING 1950 CT COLONOGRAPHY - COLON CA SCREENING 1950 Colorectal Cancer Screening 1950 FIT - COLON CA SCREENING 1950 FLEX SIG - COLON CA SCREENING 1950 MEDICARE AWV 12 MONTHS 1950 HEPATITIS C SCREENING 10/02/1969 DTAP/TDAP/TD VACCINES (1 - Tdap) 1970 PNEUMOCOCCAL VACCINE 50+ (1 of 1 - PCV) 2001 ZOSTER VACCINE (1 of 2) 2001 COVID-19 VACCINE ( - 2023-2 5 season) 2024 DEPRESSION SCREENING 10/29/2024 INFLUENZA VACCINE (Season Ended) 2025 Respiratory Syncytial Virus (RSV) Vaccine Pt: or over 60 yrs (1 - 1-dose 75+ series) 2026 HEPATITIS B VACCINE Aged Out No longe r eligible based on patient's age to complete this topic HIB VACCINE Aged Out No longer eligi ble based on patient's age to complete this topic HPV VACCINE Aged Out No longer eligi ble based on patient's age to complete this topic MENINGOCOCCAL (Group B) VACC INE SHARED DECISION-MAKING Aged Out No longer eligibl e based on patient's age to complete this topic MENINGOCOCCAL GROUPS A/C/Y/W VACCINE Aged Out No longer eligible b ased on patient's age to complete this topic Insurance MEDICARE MEDICAID - OUT OF STATE MEDICAID * Guarantor: SY FELICIANO Account Type Relation to Patient Date of Phone Billing Address Personal/Family 1950 [id number] [id number] MEDICARE [place] Care Teams Senior Actuarial Analyst Relationship Specialty [place] [address] [place] [address] Orthopedic Surgery 02/03/16
--- OUTSIDE RECORDS SUMMARY | 2025-04-15 07:24 | XMS_ITS | CONTINUITY OF CARE DOCUMENT ---
Author Name kenyetta kumari Address Unknown Organization [facility] Address [address] [place] [address] Phone [phone] Care Team Providers Care Digital Photo Printer Name Role Phone Enrique CANALES, Benjie Unavailable LUCHO FULLER Unavailable Faisal CANALES, Vaishali Unavailable PROBLEMS Condition Status Date Provider Notes CVA;1991;carotid plquign active Benjie palmer MD Hyperlipidemia;NEG CRP and lpa active Benjie Nunez MD CAD;carotid plaquing active Benjie Cabezas Hyperkalemia; completed - Benjie Nunez MD Tobacco use, quit active Benjie Nunez MD D OES NOT QUAILFY FOR SCREEN Heart murmur completed - Benjie Nunez MD Erectile dysfunction active Benjie Cabezas renal stone active Benjie Nunez MD HTN essential;NEG DUPLEX active Benjie palmer MD did not want rpm FAMILY HISTORY OF HEART DISEASE active Benjie Nunez MD dad had cabg Cerebral atherosclerosis active Benjie palmer MD Overweight active Benjie Nunez MD ? Sleep apnea completed - Benjie Nunez MD Carotid artery disease;MILD PLAQUE completed - Benjie Nunez MD Aortic atherosclerosis active Benjie Nunez MD Screening active Benjie Nunez MD neg a1c and uacr Diastolic dysfunction completed - Benjie Nunez MD Exposure to SARS-associated coronavirus;neg igg and had vaccine active Benjie Nunez MD Renal disease, chronic, mild;neg duplex active Benjie Nunez MD neg uacr, on frarcaga and arb Hypertriglyceridemia active Benjie Cabezas Bradycardia;due to rx;nml tsh active Benjie Nunez MD ENCOUNTERS Date Type Provider Location Encounter Diag nosis - In-person encounter Office Visit Benjie Nunez MD [place] [facility] CAD;carotid plaquingHTN essential;NEG DUPLEXBradycardia;due to rx;nml tsh - In-person encounter Office Visit Benjie Nunez MD [place] [facility] - In-person encounter Office Visit Benjie Nunez MD [facility] Hyperlipidemia;NEG CRP and lpaScreeningRenal disease, chronic, mild;neg duplex - In-person encounter Office Visit Benjie Nunez MD [place] [facility] - In-person encounter Office Visit Benjie Nunez MD [place] [facility] OverweightRenal disease, chronic, mild;neg duplexHypertriglyceridemia - In-person encounter Office Visit Ben[facility] [place] [facility] Renal disease, chronic, mild;neg duplex - In-person encounter Office Visit Benjie Nunez MD [place] [facility] - In-person encounter Office Visit Benjie Nunez MD [place] [facility] CVA;1991;carotid plquignHyperlipidemia;NEG CRP and lpaExposure to SARS-associated coronavirus;neg igg and had vaccine - In-person encounter Office Visit Benjie Nunez MD [place] [facility] OverweightDiastolic dysfunctionExposure to SARS-associated coronavirus;neg igg and had vaccine - In-person encounter Office Visit Benjie Nunez MD [place] [facility] - In-person encounter Office Visit Benjie Nunez MD [place] [facility] CAD;carotid plaquingHTN essential;NEG DUPLEXOverweightCarotid artery disease;MILD PLAQUE - In-person encounter Office Visit Benjie Nunez MD [place] [facility] CAD;carotid plaquing - In-person encounter Office Visit Benjie Nunez MD [place] [facility] Hyperkalemia;Tobacco use, quitHeart murmur? Sleep apneaAortic atherosclerosisScreening - In-person encounter Office Visit Benjie Nunez MD [facility] Office - In-person encounter Office Visit Benjie Nunez MD [facility] CVA;1991;carotid plquignHyperlipidemia;NEG CRP and lpaCAD;carotid plaquingTobacco use, quitErectile dysfunctionrenal stoneHTN essential;NEG DUPLEXFAMILY HISTORY OF HEART DISEASECerebral atherosclerosisOverweight VITAL SIGNS Date Observation Value Provider Body Mass Index (Ratio) 26.58 kg/m2 Eugenia Nunez MD blood pressure, diastolic 113 mm[Hg] Olga Reyes blood pressure, systolic 226 mm[Hg] Shanon Reyes oxygen saturation, oximetry 97 % Jacinda Reyes pulse rate 62 /min Jacinda Reyes respiratory rate E&M 12 /min Jacinda Reyes weight E&M 196 [lb_av] Jacinda Reyes height E&M 72 [in_i] Jacinda Reyes blood pressure, cuff size regular Olga Reyes Body Mass Index (Ratio) 28.07 kg/m2 Eugenia Nunez MD blood pressure, diastolic 80 mm[Hg] Rach lairdLogfederico blood pressure, systolic 149 mm[Hg] Brittany Masogic blood pressure, cuff size regular [facility] blood pressure, diastolic 80 mm[Hg] Ja et blood pressure, systolic 149 mm[Hg] Dulce Maria ret pulse rate 55 /min Hema respiratory rate E&M 12 /min Hema oxygen saturation, oximetry 97 % Hema weight E&M 207 [lb_av] Hema y height E&M 72 [in_i] [facility] Body Mass Index (Ratio) 27.39 kg/m2 Eugenia Nunez MD weight E&M 202 [lb_av] Benjie Serota Chung Cabezas pulse rate 55 /min Benjie Serota Chung Cabezas blood pressure, diastolic 88 mm[Hg] Ganga Nunez MD blood pressure, systolic 182 mm[Hg] Edvin Nunez MD Body Mass Index (Ratio) 27.39 kg/m2 Eugenia Nunez MD blood pressure, cuff size large [facility] blood pressure, diastolic 87 mm[Hg] [facility] blood pressure, systolic 137 mm[Hg] [facility] oxygen saturation, oximetry 98 % [facility] pulse rate 77 /min Tete cabezas respiratory rate E&M 16 /min Zenaida gil Griffin weight E&M 202 [lb_av] Tete cabezas height E&M 72 [in_i] Tete cabezas Body Mass Index (Ratio) 27.80 kg/m2 Eugenia Nunez MD weight E&M 205 [lb_av] Benjie Serotana Cabezas pulse rate 72 /min Benjie Cabezas blood pressure, diastolic 91 mm[Hg] Schuler newton Nunez MD blood pressure, systolic 157 mm[Hg] Edvin sathish Nunez MD Body Mass Index (Ratio) 29.02 kg/m2 Eugenia Nunez MD weight E&M 214 [lb_av] Benjie Cabezas blood pressure, cuff size regular Ca therine Alonso height E&M 72 [in_i] Rebeca [place] Body Mass Index (Ratio) 30.78 kg/m2 Eugenia Nunez MD blood pressure, diastolic 79 mm[Hg] Li nkLogic blood pressure, systolic 129 mm[Hg] Brittany kLogic blood pressure, diastolic 79 mm[Hg] Ca therine Alonso blood pressure, systolic 129 mm[Hg] Cat herine [place] oxygen saturation, oximetry 98 % Rebeca [place] respiratory rate E&M 14 /min Catheri ne Alonso pulse rate 88 /min Rebeca [place] weight E&M 227 [lb_av] Rebeca Alonso blood pressure, cuff size regular Ca therine Alonso height E&M 72 [in_i] Rebeca [place] Body Mass Index (Ratio) 33.50 kg/m2 Eugenia Nunez MD blood pressure, cuff size large Ke rri Gruenenfelder blood pressure, diastolic 60 mm[Hg] Ke rri Gruenenfelder blood pressure, systolic 120 mm[Hg] Ker ri Jaronuenenfelder oxygen saturation, oximetry 97 % Carly Renettanenfadry respiratory rate E&M 16 /min Carly G ruenenfelder pulse rate 80 /min Carly Gruenenfe lder weight E&M 247 [lb_av] Carly Martin [facility] height E&M 72 [in_i] Carly Martin [facility] Body Mass Index (Ratio) 33.63 kg/m2 Eugenia Nunez MD blood pressure, diastolic 92 mm[Hg] Cy ntsam Coronel blood pressure, systolic 154 mm[Hg] Ana ann marie Coronel pulse rate 64 /min Adriana Campbel l oxygen saturation, oximetry 94 % Adrianaann marie Coronel blood pressure, cuff size regular Cy ntobia Coronel respiratory rate E&M 16 /min Adriana Coronel weight E&M 248 [lb_av] Adriana Campbel l height E&M 72 [in_i] Adriana Campbel l Body Mass Index (Ratio) 28.07 kg/m2 Eugenia Nunez MD blood pressure, cuff size regular Cy ntsam Coronel blood pressure, diastolic 80 mm[Hg] Cy ntobia Coronel blood pressure, systolic 140 mm[Hg] Ana ann marie Coronel oxygen saturation, oximetry 96 % Adrianaann marie Coronel respiratory rate E&M 16 /min Adriana Coronel pulse rate 79 /min Adriana Campbel l weight E&M 207 [lb_av] Adriana Campbel l height E&M 72 [in_i] Adriana Campbel l Body Mass Index (Ratio) 32.41 kg/m2 Eugenia Nunez MD blood pressure, cuff size regular Jona Huffman blood pressure, diastolic 86 mm[Hg] Jona rri Nathanael blood pressure, systolic 152 mm[Hg] Teresa Huffman oxygen saturation, oximetry 96 % Carly Huffman respiratory rate E&M 18 /min Carly reeseteresaadry pulse rate 73 /min Carly Martin er weight E&M 239 [lb_av] Carly Martin er height E&M 72 [in_i] Carly Martin [facility] Body Mass Index (Ratio) 32.14 kg/m2 Eugenia Nunez MD blood pressure, cuff size regular Ke rri Jaronandrewmitchun[facility] center[facility] blood pressure, diastolic 80 mm[Hg] Ke rri Dadauniversity of [facility] center[facility] blood pressure, systolic 154 mm[Hg] Teresa red Nathanael oxygen saturation, oximetry 98 % Carly Salmeronbobbiuniversity of vermont medical centerjuhi respiratory rate E&M 20 /min Carly Menchaca [facility]ad[facility] center[facility] pulse rate 73 /min Carly Garlandjeffery [facility] weight E&M 237 [lb_av] Carly Martin [facility] height E&M 72 [in_i] Carly Martin [facility] blood pressure, diastolic 78 mm[Hg] Ta chloé Scaife STRIP CUTTING MACHINE OPERATOR blood pressure, systolic 118 mm[Hg] Whitlock judith Scaife STRIP CUTTING MACHINE OPERATOR Body Mass Index (Ratio) 32.28 kg/m2 Eugenia Nunez MD blood pressure, resting Yes Eugenia Nunez MD blood pressure, diastolic, left arm 88 mm [Hg] Best Baig RN blood pressure, systolic, left arm 148 mm [Hg] Best Baig RN blood pressure, diastolic, right arm 92 m m[Hg] Best Baig RN blood pressure, systolic, right arm 146 m m[Hg] Best Baig RN blood pressure, diastolic 92 mm[Hg] Damien Baig RN blood pressure, systolic 146 mm[Hg] Rufino Baig RN oxygen saturation, oximetry 99 % Best Baig RN respiratory rate E&M 17 /min Best pham RN pulse rate 66 /min Best Baig RN weight E&M 238 [lb_av] Best Baig RN height E&M 72 [in_i] Best Baig RN ALLERGIES Allergy Name Onset Date Reaction Criticality Status ALDACTONE highk Low Criticality active RESULTS Date Observation Value Provider Reference Range Interpretation Location calcium, serum 9.0 mg/dL [facility] 8.6-10.3 Normal carbon dioxide, venous blood 29 mmol/L [facility] 20-32 Normal chloride, serum 106 mmol/L [facility] 98-110 Normal potassium, serum 4.5 mmol/L [facility] 3.5-5.3 Normal sodium, serum 142 mmol/L [facility] 135-146 Normal urea nitrogen/creatinine ratio, serum 10 (calc) [facility] 6-22 Normal Estimated Glomerular Filtration Rate (calc) 69 mL/min/{1.73_ m2} [facility] > OR = 60 Normal creatinine, serum 1.22 mg/dL [facility] 0.70-1.18 High urea nitrogen, blood 12 mg/dL [facility] 7-25 Normal blood glucose, random 104 mg/dL [facility] 65-99 High lipoprotein, beta, serum, point, quantitative, calculated 39 mg/dL [facility] 0-99 HDL cholesterol, serum 32 mg/dL [facility] >39 Low triglyceride, serum, random 151 mg/dL [facility] 0-149 High cholesterol, serum 97 mg/dL [facility] 100-199 Low prothrombin time (patient) 10.7 s [facility] 9.0-11.5 Normal international normalized ratio (INR) 1.0 [facility] Normal basophils as percent of blood leukocytes 0.4 % [facility] Normal eosinophils as percent of blood leukocytes 1.2 % [facility] Normal monocyte count, blood 6.6 % [facility] Normal lymphocyte count, blood 29.1 % [facility] Normal neutrophils as percent of blood leukocytes 62.7 % [facility] Normal basophils, absolute, manual 41 cells/mcL [facility] 0-200 Normal eosinophils, absolute, manual 122 cells/mcL [facility] 15-500 Normal monocytes, absolute, manual 673 cells/mcL [facility] 200-950 Normal lymphocytes, absolute 2968 CELLS/UL [facility] 850-3900 Normal Absolute Neutrophil count 6395 cells/mcL [facility] 5410-9335 Normal mean platelet volume 10.0 fL [facility] 7.5-12.5 Normal platelet count 213 THOUSAND/UL [facility] 140-400 Normal red blood cell distribution width 12.6 % [facility] 11.0-15.0 Normal mean corpuscular hemoglobin concentration, RBC 33.7 G/DL [facility] 32.0-36.0 Normal mean corpuscular hemoglobin, RBC 31.3 pg [facility] 27.0-33.0 Normal mean corpuscular volume, RBC 92.7 fL [facility] 80.0-100.0 Normal hematocrit, blood 41.8 % [facility] 38.5-50.0 Normal hemoglobin electrophoresis, blood 14.1 [facility] 13.2-17.1 Normal erythrocyte (RBC) count 4.51 MILLION/UL [facility] 4.20-5.80 Normal leukocyte (white blood cells) count, blood 10.2 THOUSAND/UL [facility] 3.8-10.8 Normal calcium, serum 9.4 mg/dL [facility] 8.6-10.3 Normal carbon dioxide, venous blood 28 mmol/L [facility] 20-31 Normal chloride, serum 108 mmol/L [facility] 98-110 Normal potassium, serum 4.4 mmol/L [facility] 3.5-5.3 Normal sodium, serum 145 mmol/L [facility] 135-146 Normal urea nitrogen/creatinine ratio, serum NOT APPLICABLE (calc) [facility] 6-22 Estimated Glomerular Filtration Rate (calc) 107 mL/min/{1.73_ m2} [facility] > OR = 60 Normal creatinine, serum 0.81 mg/dL [facility] 0.70-1.25 Normal urea nitrogen, blood 9 mg/dL [facility] 7-25 Normal blood glucose, random 115 mg/dL [facility] 65-99 High cholesterol, non-HDL, total 86 MG/DL (CALC) [facility] <130 Normal cholesterol/HDL ratio, serum, percent 2.8 (calc) [facility] <5.0 Normal LDL cholesterol, serum 67 MG/DL (CALC) [facility] Normal triglyceride, serum, fasting 103 mg/dL [facility] <150 Normal HDL cholesterol, serum 49 mg/dL [facility] >40 Normal cholesterol, serum 135 mg/dL [facility] <200 Normal pro brain natriuretic peptide 30 pg/mL [facility] 0-376 lipoprotein, beta, serum, point, quantitative, calculated 80 mg/dL [facility] 0-99 very low density lipoproteins 37 mg/dL [facility] 5-40 HDL cholesterol, serum 51 mg/dL [facility] >39 triglyceride, serum, random 183 mg/dL [facility] 0-149 High cholesterol, serum 168 mg/dL [facility] 447-763 8018/12 /28 alanine aminotransferase (SGPT), serum 10 1/L [facility] 0-44 aspartate aminotransferase (SGOT), serum 13 1/L [facility] 0-40 alkaline phosphatase, serum 89 1/L [facility] 39-117 bilirubin, serum, total 0.3 mg/dL [facility] 0.0-1.2 albumin/globulin ratio, serum 1.4 [facility] 1.2-2.2 globulin, serum 3.2 [facility] 1.5-4.5 albumin, serum 4.4 g/dL [facility] 3.6-4.8 protein, total, serum 7.6 g/dL [facility] 6.0-8.5 calcium, serum 9.5 mg/dL [facility] 8.6-10.2 carbon dioxide, venous blood 30 mmol/L [facility] 18-29 High chloride, serum 100 mmol/L [facility] 96-106 potassium, serum 5.5 mmol/L [facility] 3.5-5.2 High sodium, serum 144 mmol/L [facility] 335-068 7693/12 /28 urea nitrogen/creatinine ratio, serum 14 [facility] 10-24 eGFR if not 95 mL/min/{1.73_ m2} [facility] >59 creatinine, serum 0.76 mg/dL [facility] 0.76-1.27 urea nitrogen, blood 11 mg/dL [facility] 8-27 blood glucose, random 70 mg/dL [facility] 65-99 vitamin b12, serum 483.8 pg/mL [facility] 211.0 - 946.0 pro brain natriuretic peptide 28.9 pg/mL [facility] 0.0 - 125.0 ferritin, serum 157.8 ng/mL [facility] 30.0 - 400.0 urea nitrogen/creatinine ratio, serum 18.8 [facility] - Estimated Glomerular Filtration Rate (calc) 103.1 (?) [facility] 59.0 - chloride, serum 100.9 mmol/L [facility] 98.0 - 107.0 potassium, serum 4.9 mmol/L [facility] 3.5 - 5.1 sodium, serum 141.0 mmol/L [facility] 136.0 - 145.0 creatinine, serum 0.8 mg/dL [facility] 0.7 - 1.2 carbon dioxide, venous blood 27.0 mmol/L [facility] 23.0 - 31.0 calcium, serum 9.6 mg/dL [facility] 8.6 - 10.2 urea nitrogen, blood 15.0 mg/dL [facility] 8.0 - 23.0 blood glucose, random 94.0 mg/dL [facility] 74.0 - 99.0 iron, serum 111.0 ug/dL [facility] 31.0 - 144.0 iron saturation percent, serum 30.0 % [facility] 20.0 - 50.0 iron binding capacity, total 369.6 ug/dL [facility] 250.0 - 450.0 HISTORY OF MEDICATION USE Medication Status Instructions Dates Provider Indications Com vanessa Paiz SureClick 140 mg/mL pen injector active Inject 1 mL (140 mg) by subcutaneous injection every 2 weeks. 03/11 Benjie Nunez MD bupropion HCl 150 mg tablet extended release 24 hr active Benjie Nunez MD Farxiga 10 mg tablet active TAKE 1 TABLET BY MOUTH EVERY DAY 02/25 Jarred Bobby Jardiance 10 mg tablet completed TAKE 1 TABLET BY MOUTH DAILY - 03/11 Benjie Nunez MD Jardiance 10 mg tablet completed Take 1 tablet by mouth once a day 02/16 - Jarred Bobby Farxiga 10 mg tablet completed TAKE 1 TABLET BY MOUTH ONCE DAILY 12/18 - 02/16 Benjie Nunez MD Norvasc 10 mg tablet completed Take 1 tablet by mouth once a day - 03/11 Benjie Nunez MD Vascepa 1 gram capsule active TAKE 2 CAPSULES BY MOUTH TWICE DAILY 01/06 Jarred Bobby Farxiga 10 mg tablet completed TAKE 1 TABLET BY MOUTH ONCE DAILY. REDUCES CARDIOVASCULAR AND HEART FAILURE HOSPITALIZATIONS 01/06 - 12/18 Yobany Rivers carvedilol 12.5 mg tablet active TAKE 1 TABLET BY MOUTH TWICE DAILY 12/21 Cassidy Rushing aspirin 81 mg tablet,delayed release (/EC) active TAKE 1 TABLET BY MOUTH DAILY 04/13 Benjie Nunez MD SELECT semaglutide/place lul completed once weekly injection - Benjie Nunez MD Farxiga 10 mg tablet completed Take 1 tablet by mouth once a day TAKE 1 TABLET BY MOUTH DAILY. REDUCES CARDIOVASCULAR AND HEART FAILURE HOSPITALIZATIONS. 04/08 - 01/06 Carly Huffman carvedilol 3.125 mg tablet completed TAKE 1 TABLET BY MOUTH TWICE DAILY 04/04 - 12/21 Benjie Nunez MD Nexletol 180 mg tablet completed TAKE 1 TABLET BY MOUTH EVERY DAY WITH ZETIA AND ATORVASTATIN 03/30 - 03/11 Benjie Nunez MD ezetimibe 10 mg tablet active TAKE 1 TABLET BY MOUTH DAILY 03/09 Jarred Bobby losartan 100 mg tablet active TAKE 1 TABLET BY MOUTH DAILY 11/29 Benjie Nunez MD topiramate 100 mg tablet completed TAKE 1 TABLET BY MOUTH EVERY DAY 12/14 - 12/07 Francois Dyer hydrochlorothiazi de 25 mg tablet completed TAKE 1 TABLET BY MOUTH DAILY 12/14 - 12/07 Francois Dyer Xarelto 2.5 mg tablet active TAKE 1 TABLET BY MOUTH TWICE DAILY 11/27 Cassidy Rushi atorvastatin 80 mg tablet active TAKE 1 TABLET BY MOUTH EVERY DAY Yobany Rivers Nexletol 180 mg tablet completed TAKE 1 TABLET BY MOUTH DAILY WITH ZETIA AND ATORVASTATIN - 03/30 Carly Huffman Vascepa 1 gram capsule completed 2 capsule by mouth twice a day 12/09 - 01/06 Carly Huffman phentermine 37.5 mg capsule completed 1 tablet by mouth once a day 12/08 - 12/07 Benjie Nunez MD Xarelto 2.5 mg tablet completed 1 tablet by mouth twice a day 11/08 - 11/27 Jairon Bueno NP Cialis 10 mg tablet completed 1 tablet by mouth once a day as needed 11/08 - 03/11 Benjie Nunez MD Nexletol 180 mg tablet completed one tab by mouth once daily wiith zetia and atorvastyain 11/02 - Benjie Nunez MD hydrochlorothiazi de 25 mg tablet completed 1 tablet by mouth once a day 07/09 - 12/14 Benjie Nunez MD losartan 100 mg tablet completed Take 1 tablet by mouth once a day 07/03 - 12/07 Benjie Nunez MD Topamax 100 mg tablet completed tablet by mouth once a day 04/04 - 12/14 Benjie Nunez MD ADIPEX-P 37.5 MG ORAL CAPSULE completed one a day 04/04 - 12/08 Benjie Nunez MD ezetimibe 10 mg tablet completed Take 1 tablet by mouth once a day 11/07 - 03/[facility] DIOVAN 80 MG ORAL TABLET completed ONE TAB. twice a day 12/25 - 05/27 Benjie Nunez MD carvedilol 3.125 mg tablet completed Take 1 tablet by mouth twice a day - 04/04 Kendal Rosas Flonase Allergy Relief 50 mcg/actuation spray,suspension completed into both nostrils as needed 12/20 - 04/08 Benjie Nunez MD nabumetone 750 mg tablet completed Take 1 tablet by mouth twice a day 12/20 - 04/08 Benjie Nunez MD CLOPIDOGREL BISULFATE 75 MG ORAL TABLET completed Take 1 Tablet Once a Day. 12/20 - 11/08 Jairon Bueno NP aspirin 81 mg tablet,delayed release (/EC) completed 1 tablet by mouth once a day 12/20 - 04/13 Benjie Nunez MD atorvastatin 80 mg tablet completed Take 1 tablet by mouth once a day 06/01 - Yobany Rivers Tylenol Arthritis Pain 650 mg tablet extended release completed tablet by mouth as needed 12/20 - 04/08 Benjie Nunez MD SOCIAL HISTORY Date Observation Value Provider smoking, year quit 1990 Benjie cameron MD smoking history, tot al pack/year 40 Benjie Nunez MD smoking history, tot al pack/day 3 Benjie Nunez MD cigarette use yes Benjie Nunez MD smoking status Former smoker Benjie perez MD social history reviewed E&M revi ewed - no changes required Darrel Perera NP social history E&M S moking History: Roshni mcpherson is a former smoker. 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 Benjie Nunez MD social history reviewed E&M revi ewed - no changes required Benjie Nunez MD smoking, year quit 1990 Rebeca Alonso smoking history, tot al pack/year 40 Rebeca Alonso smoking history, tot al pack/day 3 Rebeca Alonso cigarette use yes Rebeca Alonso smoking status Former smoker Rebeca Ot is social history E&M S moking History: Roshni mcpherson is a former smoker. Benjie Nunez MD social history reviewed E&M revi ewed - no changes required Benjie Nunez MD smoking, year quit 1990 Rebeca Alonso smoking history, tot al pack/year 40 Rebeca [place] smoking history, tot al pack/day 3 Rebeca Alonso cigarette use yes Rebeca [place] smoking status Former smoker Rebeca Ot is quit smoking, stage quit Benjie rodriguez MD social history E&M S moking History: Roshni mcpherson is a former smoker. Benjie Nunez MD social history reviewed E&M revi ewed - no changes required Benjie Nunez MD smoking, year quit 1990 Carly Keisha torres smoking history, tot al pack/year 40 Carly Nathanael smoking history, tot al pack/day 3 Carly Nathanael cigarette use yes Carly Dada rider smoking status Former smoker Carly Salmeronethel glaser social history reviewed E&M revi ewed - no changes required Jairon Bueno NP smoking, year quit 1990 Adriana tejada smoking history, tot al pack/year 40 Adriana Coronel smoking history, tot al pack/day 3 Adriana Coronel cigarette use yes Adriana macias smoking status Former smoker Adriana [employer] social history reviewed E&M revi ewed - no changes required Benjie Nunez MD social history E&M S moking History: Roshni mcpherson is a former smoker. Benjie Nunez MD social history reviewed E&M revi ewed - no changes required Benjie Nunez MD smoking, year quit 1990 Carly Keisha torres smoking history, tot al pack/year 40 Carly Nathanael smoking history, tot al pack/day 3 Carly Nathanael cigarette use yes Carly Garland elder smoking status Former smoker Carly Lo jailyn quit smoking, stage quit Benjie rodriguez MD social history E&M S moking History: Roshni mcpherson is a former smoker. Benjie Nunez MD social history reviewed E&M revi ewed - no changes required Benjie Nunez MD smoking, year quit 1990 Carly Valdes melissa smoking history, tot al pack/year 40 Carly Salmeronnilesh smoking history, tot al pack/day 3 Carly Salmeronnilesh cigarette use yes Carly Dada rider smoking status Former smoker Carly Teresita glaser quit smoking, stage quit Benjie rodriguez MD social history E&M S moking History: Roshni mcpherson is a former smoker. Benjie Nunez MD social history reviewed E&M revi ewed - no changes required Benjie Nunez MD handedness R Handed Benjie Cabezas number of grandchildren Benjie Baig RN smoking history, tot al pack/year 40 Best Baig RN smoking history, tot al pack/day 3 Best Baig RN smoking, year quit 1990 Best mitchell RN cigarette use yes Best Hall N smoking status Former smoker Best Baig RN FUNCTIONAL STATUS Date Observation Value Provider HRA, CV Assess/Plan, Angina (inactive) Management Plan continue current therapy Benjie Nunez MD HRA, CV Assess/Plan, Angina (inactive) Management Plan continue current therapy Darrel Perera NP HRA, CV Assess/Plan, Angina (inactive) Management Plan continue current therapy Darrel Perera NP HRA, CV Assess/Plan, Angina (inactive) Management Plan continue current therapy Benjie Nunez MD HRA, CV Assess/Plan, Angina (inactive) Management Plan continue current therapy Benjie Nunez MD HRA, CV Assess/Plan, Angina (inactive) Management Plan continue current therapy Benjie Nunez MD HRA, CV Assess/Plan, Angina (inactive) Management Plan continue current therapy Benjie Nunez MD HRA, CV Assess/Plan, Angina (inactive) Management Plan continue current therapy Jairon Bueno NP HRA, CV Assess/Plan, Angina (inactive) Management Plan continue current therapy Benjie Nunez MD HRA, CV Assess/Plan, Angina (inactive) Management Plan continue current therapy Benjie Nunez MD HRA, CV Assess/Plan, Angina (inactive) Management Plan continue current therapy Benjie Nunez MD HRA, CV Assess/Plan, Angina (inactive) Management Plan continue current therapy Benjie Nunez MD FAMILY HISTORY Family Member Condition Father Family History of Co ronary Artery Disease: Father Family History of Hy pertension: Mother Family History of As thma: INSURANCE PROVIDERS Payer name Policy type / Coverage type [facility] ID [facility] [id number] [facility] Medicaid 3 [id number] ADVANCE DIRECTIVES Name Date DISCUSSED - NO DECISION MADE TREATMENT PLAN Date Name Performer [id number],S, O n Johanna Perera NP [id number],C, O n statin, Zetia, and ASA. Darrel Perera NP [id number],C, His updated medication list for this problem includes: Ezetimibe 10 Mg Tablet (Ezetimibe) ..... Take 1 tablet by mouth daily Vascepa 1 Gram Capsule (Icosapent ethyl) ..... Take 2 capsules by mouth twice daily Atorvastatin 80 Mg Tablet (Atorvastatin) ..... Take 1 tablet by mouth every day Nexletol 180 Mg Tablet (Bempedoic acid) ..... Take 1 tablet by mouth every day with zetia and atorvastatin Darrel Perera NP [id number],C, C ONCLUSIONS: Echo 11/03/2022 1 . Normal left ventricular function with no significant valvular abnormalities, normal echo. RPM Avg BP 132/74 HR 52 H is updated medication list for this problem includes: Norvasc 10 Mg Tablet (Amlodipine) ..... Take 1 tablet by mouth once a day Aspirin 81 Mg Tablet,delayed Release (dr/ec) (Aspirin) ..... Take 1 tablet by mouth daily Losartan 100 Mg Tablet (Losartan) ..... Take 1 tablet by mouth daily Carvedilol 12.5 Mg Tablet (Carvedilol) ..... Take 1 tablet by mouth twice daily Darrel Perera JOSE [id number],C, 2 130 m od diffue dz in 18, neg nuc 20 N o angina. Continue current medications. His updated medication list for this problem includes: Norvasc 10 Mg Tablet (Amlodipine) ..... Take 1 tablet by mouth once a day Aspirin 81 Mg Tablet,delayed Release (dr/ec) (Aspirin) ..... Take 1 tablet by mouth daily Carvedilol 12.5 Mg Tablet (Carvedilol) ..... Take 1 tablet by mouth twice daily Darrel Kwanluke GARCIA [id number],SBenjie MD [id number],SBenjie MD [id number],SBenjie MD [id number],BBenjie MD [id number],SBenjie MD [id number],BBenjie MD [id number],S,2 130 m od diffue dz in 18, neg nuc 20 Benjie Nunez MD [id number],S, n eg ehco N O AAA N OOSA ON IHS HX OF NML TSH and iron and pro and vit d and b12 Benjie Nunez MD [id number],B,b ette rupal rx e gfr 60 Benjie Nunez MD [id number],S, Benjie perez MD [id number],B, Benjie perez MD [id number],C,He quit cosmo >30 years ago Kylelavelle Trever GARCIA [id number],C, H is updated medication list for this problem includes: Vascepa 1 Gram Capsule (Icosapent ethyl) ..... Take 2 capsules by mouth twice daily Atorvastatin 80 Mg Tablet (Atorvastatin) ..... Take 1 tablet by mouth every day Nexletol 180 Mg Tablet (Bempedoic acid) ..... Take 1 tablet by mouth every day with zetia and atorvastatin Ezetimibe 10 Mg Tablet (Ezetimibe) ..... 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 Take 1 tablet by mouth daily Darrel Smithteofilo GARCIA [id number],S, Darrel Smith [facility] [id number],C,C ONCLUSIONS: Echo 11/03/2022 1 . Normal left ventricular function with no significant valvular abnormalities, normal echo. RPM 142/86, HR 69 His updated medication list for this problem includes: Losartan 100 Mg Tablet (Losartan) ..... Take 1 tablet by mouth daily Carvedilol 12.5 Mg Tablet (Carvedilol) ..... Take 1 tablet by mouth twice daily Aspirin 81 Mg Tablet,delayed Release (dr/ec) (Aspirin) ..... Take 1 tablet by mouth daily BP today: 137/87 P rior BP: 157/91 (10/20/2022) Labs Reviewed: C reat: 1.22 (01/05/2022) C hol: 97 (12/09/2020) HDL: 32 (12/09/2020) Darrel Perera JOSE [id number],C,C ONCLUSIONS: Echo 11/03/2022 1 . Normal left ventricular function with no significant valvular abnormalities, normal echo. 2130 S table without angina. 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 Stress test 09/02/20 was negative for inducible ischemia with normal LVEF. His updated medication list for this problem includes: Carvedilol 12.5 Mg Tablet (Carvedilol) ..... Take 1 tablet by mouth twice daily Aspirin 81 Mg Tablet,delayed Release (dr/ec) (Aspirin) ..... Take 1 tablet by mouth daily Darrel Smithteofilo GARCIA [id number],C, H is updated medication list for this problem includes: Vascepa 1 Gram Capsule (Icosapent ethyl) ..... Take 2 capsules by mouth twice daily Atorvastatin 80 Mg Tablet (Atorvastatin) ..... Take 1 tablet by mouth every day Nexletol 180 Mg Tablet (Bempedoic acid) ..... Take 1 tablet by mouth every day with zetia and atorvastatin Ezetimibe 10 Mg Tablet (Ezetimibe) ..... Take 1 tablet by mouth daily Kylelavelle Kwanluke GARCIA [id number],SBenjie MD [id number],SBenjie MD [id number],SBenjie MD [id number],B,down 70 lbs H clarke Nunez MD [id number],SBenjie MD [id number],SBenjie MD [id number],SBenjie MD [id number],SBenjie MD [id number],S, 2 130 S table without angina. 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 Stress test 09/02/20 was negative for inducible ischemia with normal LVEF. Benjie Williamsonana CANALES [id number],S, Benjie perez [id number],C, n eg ehco N O AAA N OOSA ON IHS HX OF NML TSH and iron and pro and vit d and b12 Benjie Willaimsonana CANALES [id number],S, Benjie Williamson ana CANALES [id number],S, e gfr 60 Benjiesahil Williamsonana CANALES [id number],C,egfr 60 Eugeniae y Teriana CANALES [id number],S, Benjie Serot ana [id number],S, Benjie Serot ana [id number],S, 2 130 S table without angina. 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 Stress test 09/02/20 was negative for inducible ischemia with normal LVEF. Benjie Williamsonana CANALES [id number],B, Benjie Serot ana [id number],S, Benjie Serot a [id number],S, Benjie Serot ana [id number],S, Benjie Serot a [id number],S, Benjie Serot a [id number],S, Benjie Serot a [id number],S, Benjie Serot a [id number],S, H is updated medication list for this problem includes: Nexletol 180 Mg Tablet (Bempedoic acid) ..... Take 1 tablet by mouth every day with zetia and atorvastatin Ezetimibe 10 Mg Tablet (Ezetimibe) ..... Take 1 tablet by mouth daily Atorvastatin 80 Mg Tablet (Atorvastatin) ..... Take 1 tablet by mouth every day Vascepa 1 Gram Capsule (Icosapent ethyl) ..... 2 capsule by mouth twice a day C HOL: 97 (12/09/2020) HDL: 32 (12/09/2020) Benjie Nunez MD [id number],S, n eg ehco N O AAA N OOSA ON IHS HX OF NML TSH and iron and pro and vit d and b12 Benjie Nunez MD [id number],SBenjie MD [id number],S, Benjie perez MD [id number],SBenjie MD [id number],B, T he following medications were removed from the medication list: Losartan 100 Mg Tablet (Losartan) ..... Take 1 tablet by mouth once a day His updated medication list for this problem includes: Losartan 100 Mg Tablet (Losartan) ..... Take 1 tablet by mouth daily Aspirin 81 Mg Tablet,delayed Release (dr/ec) (Aspirin) ..... 1 tablet by mouth once a day Hydrochlorothiazide 25 Mg Tablet (Hydrochlorothiazide) ..... Take 1 tablet by mouth daily Carvedilol 3.125 Mg Tablet (Carvedilol) ..... Take 1 tablet by mouth twice a day BP today: 129/79 P rior BP: 120/60 (12/08/2020) Labs Reviewed: C reat: 0.81 (01/04/2018) C hol: 97 (12/09/2020) HDL: 32 (12/09/2020) Benjie Nunez MD [id number],SBenjie MD [id number],S, 2 130 S table without angina. 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 Stress test 09/02/20 was negative for inducible ischemia with normal LVEF. Benjie Nunez MD [id number],SBenjie MD [id number],S, Benjie perez MD [id number],B, Benjie perez MD [id number],S, n eg ehco N O AAA N OOSA ON IHS HX OF NML TSH and iron and pro and vit d and b12 Benjie Nunez MD [id number],C,down 75 lbs f rom clin drial Benjie Nunez MD Cardiology Benjie Nunez MD Cardiology: b ette rupal rx e gfr 60 Benjie Nunez MD Cardiology: n eg ehco N O AAA N OOSA ON IHS n eg iron and pro and vit d and b12 Benjie Nunez MD Cardiology Benjie Nunez MD Cardiology Benjie Nunez MD Cardiology Benjie Nunez MD Cardiology Benjie Nunez MD Cardiology Benjie Nunez MD Cardiology Benjie Nunez MD Cardiology Benjie Nunez MD Cardiology:pos nuc 2 3,, lost to fu no change from before casth 2 130 m od diffue dz in 18, neg nuc 20 N o angina. Continue current medications. Benjie Nunez MD Cardiology: H is updated medication list for this problem includes: Carvedilol 12.5 Mg Tablet (Carvedilol) ..... Take 1 tablet by mouth twice daily Norvasc 10 Mg Tablet (Amlodipine) ..... Take 1 tablet by mouth once a day Aspirin 81 Mg Tablet,delayed Release (dr/ec) (Aspirin) ..... Take 1 tablet by mouth daily H CT: 41.8 (01/04/2018) Platelets: 213 THOUSAND/UL (01/04/2018) RBC: 4.51 MILLION/UL (01/04/2018) BUN: 12 (01/05/2022) Creat: 1.22 (01/05/2022) Glucose: 104 (01/05/2022) N a+: 142 (01/05/2022) K+: 4.5 (01/05/2022) Cl: 106 (01/05/2022) Calcium: 9.0 (01/05/2022) Benjie Nunez MD Cardiology: O n Cialis Darrel Perera NP Cardiology: O n statin, Zetia, and ASA. Darrel Perera NP Cardiology: His updated medication list for this problem includes: Ezetimibe 10 Mg Tablet (Ezetimibe) ..... Take 1 tablet by mouth daily Vascepa 1 Gram Capsule (Icosapent ethyl) ..... Take 2 capsules by mouth twice daily Atorvastatin 80 Mg Tablet (Atorvastatin) ..... Take 1 tablet by mouth every day Nexletol 180 Mg Tablet (Bempedoic acid) ..... Take 1 tablet by mouth every day with zetia and atorvastatin Darrel Perera NP Cardiology: C ONCLUSIONS: Echo 11/03/2022 1 . Normal left ventricular function with no significant valvular abnormalities, normal echo. RPM Avg BP 132/74 HR 52 H is updated medication list for this problem includes: Norvasc 10 Mg Tablet (Amlodipine) ..... Take 1 tablet by mouth once a day Aspirin 81 Mg Tablet,delayed Release (dr/ec) (Aspirin) ..... Take 1 tablet by mouth daily Losartan 100 Mg Tablet (Losartan) ..... Take 1 tablet by mouth daily Carvedilol 12.5 Mg Tablet (Carvedilol) ..... Take 1 tablet by mouth twice daily Darrel Perera NP Cardiology: 2 130 m od diffue dz in 18, neg nuc 20 N o angina. Continue current medications. His updated medication list for this problem includes: Norvasc 10 Mg Tablet (Amlodipine) ..... Take 1 tablet by mouth once a day Aspirin 81 Mg Tablet,delayed Release (dr/ec) (Aspirin) ..... Take 1 tablet by mouth daily Carvedilol 12.5 Mg Tablet (Carvedilol) ..... Take 1 tablet by mouth twice daily Darrel Perera NP TeleHealth Benjie Nunez MD TeleHealth Benjie Nunez MD TeleHealth eBnjie Nunez MD TeleHealth Benjie Nunez MD TeleHealth Benjie Nunez MD TeleHealth Benjie Nunez MD TeleHealth:2130 m od diffue dz in 18, neg nuc 20 Benjie Nunez MD TeleHealth: n eg ehco N O AAA N OOSA ON IHS HX OF NML TSH and iron and pro and vit d and b12 Benjie Nunez MD TeleHealth:christen rupal rx e gfr 60 Benjie Nunez MD TeleHealth Benjie Nunez MD TeleHealth Benjie Nunez MD Cardiology:He quit smoking >30 y ears ago Darrel Perera NP Cardiology: H is updated medication list for this problem includes: Vascepa 1 Gram Capsule (Icosapent ethyl) ..... Take 2 capsules by mouth twice daily Atorvastatin 80 Mg Tablet (Atorvastatin) ..... Take 1 tablet by mouth every day Nexletol 180 Mg Tablet (Bempedoic acid) ..... Take 1 tablet by mouth every day with zetia and atorvastatin Ezetimibe 10 Mg Tablet (Ezetimibe) ..... Take 1 tablet by mouth daily Darrel Perera NP Cardiology:On Cialis Kylelavelle cronin NP Cardiology: H is updated medication list for this problem includes: Aspirin 81 Mg Tablet,delayed Release (dr/ec) (Aspirin) ..... Take 1 tablet by mouth daily Darrel Perera NP Cardiology Darrel Drake P Cardiology:CONCLUSIO NS: Echo 11/03/2022 1 . Normal left ventricular function with no significant valvular abnormalities, normal echo. RPM 142/86, HR 69 His updated medication list for this problem includes: Losartan 100 Mg Tablet (Losartan) ..... Take 1 tablet by mouth daily Carvedilol 12.5 Mg Tablet (Carvedilol) ..... Take 1 tablet by mouth twice daily Aspirin 81 Mg Tablet,delayed Release (dr/ec) (Aspirin) ..... Take 1 tablet by mouth daily BP today: 137/87 P rior BP: 157/91 (10/20/2022) Labs Reviewed: C reat: 1.22 (01/05/2022) C hol: 97 (12/09/2020) HDL: 32 (12/09/2020) Darrel Perera NP Cardiology:CONCLUSIO NS: Echo 11/03/2022 1 . Normal left ventricular function with no significant valvular abnormalities, normal echo. 2130 S table without angina. 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 Stress test 09/02/20 was negative for inducible ischemia with normal LVEF. His updated medication list for this problem includes: Carvedilol 12.5 Mg Tablet (Carvedilol) ..... Take 1 tablet by mouth twice daily Aspirin 81 Mg Tablet,delayed Release (dr/ec) (Aspirin) ..... Take 1 tablet by mouth daily Darrel Perera NP Cardiology: H is updated medication list for this problem includes: Vascepa 1 Gram Capsule (Icosapent ethyl) ..... Take 2 capsules by mouth twice daily Atorvastatin 80 Mg Tablet (Atorvastatin) ..... Take 1 tablet by mouth every day Nexletol 180 Mg Tablet (Bempedoic acid) ..... Take 1 tablet by mouth every day with zetia and atorvastatin Ezetimibe 10 Mg Tablet (Ezetimibe) ..... Take 1 tablet by mouth daily Darrel Perera NP TeleHealth Benjie Nunez MD TeleHealth Benjie Nunez MD TeleHealth Benjie Nunez MD TeleHealth:down 70 lbs Benjie cameron MD TeleHealth Benjie Nunez MD TeleHealth Benjie Nunez MD TeleHealth Benjie Nunez MD TeleHealth Benjie Nunez MD TeleHealth: 2 130 S table without angina. 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 Stress test 09/02/20 was negative for inducible ischemia with normal LVEF. Benjie Nunez MD TeleHealth Benjie Nunez MD TeleHealth: n eg ehco N O AAA N OOSA ON IHS HX OF NML TSH and iron and pro and vit d and b12 Benjie Nunez MD TeleHealth Benjie Nunez MD TeleHealth: e gfr 60 Benjie Nunez MD TeleHealth:egfr 60 Benjie Nunez MD TeleHealth Benjie Nunez MD TeleHealth Benjie Nunez MD TeleHealth: 2 130 S table without angina. 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 Stress test 09/02/20 was negative for inducible ischemia with normal LVEF. Benjie Nunez MD TeleHealth Benjie Nunez MD TeleHealth Benjie Nunez MD TeleHealth Benjie Nunez MD TeleHealth Benjie Nunez MD TeleHealth Benjie Nunez MD TeleHealth Benjie Nunez MD TeleHealth Benjie Nunez MD TeleHealth: H is updated medication list for this problem includes: Nexletol 180 Mg Tablet (Bempedoic acid) ..... Take 1 tablet by mouth every day with zetia and atorvastatin Ezetimibe 10 Mg Tablet (Ezetimibe) ..... Take 1 tablet by mouth daily Atorvastatin 80 Mg Tablet (Atorvastatin) ..... Take 1 tablet by mouth every day Vascepa 1 Gram Capsule (Icosapent ethyl) ..... 2 capsule by mouth twice a day C HOL: 97 (12/09/2020) HDL: 32 (12/09/2020) Benjie Nunez MD TeleHealth: n eg ehco N O AAA N OOSA ON IHS HX OF NML TSH and iron and pro and vit d and b12 Benjie Nunez MD Cardiology Benjie Nunez MD Cardiology Benjie Nunez MD Cardiology Benjie Nunez MD Cardiology: T he following medications were removed from the medication list: Losartan 100 Mg Tablet (Losartan) ..... Take 1 tablet by mouth once a day His updated medication list for this problem includes: Losartan 100 Mg Tablet (Losartan) ..... Take 1 tablet by mouth daily Aspirin 81 Mg Tablet,delayed Release (dr/ec) (Aspirin) ..... 1 tablet by mouth once a day Hydrochlorothiazide 25 Mg Tablet (Hydrochlorothiazide) ..... Take 1 tablet by mouth daily Carvedilol 3.125 Mg Tablet (Carvedilol) ..... Take 1 tablet by mouth twice a day BP today: 129/79 Prior BP: 120/60 (12/08/2020) Labs Reviewed: C reat: 0.81 (01/04/2018) C hol: 97 (12/09/2020) HDL: 32 (12/09/2020) Benjie Nunez MD Cardiology Benjie Nunez MD Cardiology: 2 130 S table without angina. 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 Stress test 09/02/20 was negative for inducible ischemia with normal LVEF. Benjie Nunez MD Cardiology Benjie Nunez MD Cardiology Benjie Nunez MD Cardiology Benjie Nunez MD Cardiology: n eg ehco N O AAA N OOSA ON IHS HX OF NML TSH and iron and pro and vit d and b12 Benjie Nunez MD Cardiology:down 75 lbs from clin drbalbina Nunez MD Cardiology Follow up : H is updated medication list for this problem includes: Nexletol 180 Mg Oral Tablet (Bempedoic acid) ..... One tab by mouth once daily wiith zetia and atorvastyain Ezetimibe 10mg Tablets (Ezetimibe) ..... Take 1 tablet by mouth daily Atorvastatin 80mg Tablets (Atorvastatin calcium) ..... Take 1 tablet by mouth every day C HOL: 135 (01/04/2018) LDL: 67 MG/DL (CALC) (01/04/2018) HDL: 49 (01/04/2018) T (01/04/2018) Benjie Nunez MD Cardiology Follow up Benjie palmer MD Cardiology Follow up Benjie palmer MD Cardiology Follow up Benjie palmer MD Cardiology Follow up Benjie palmer MD Cardiology Follow up Benjie palmer MD Cardiology Follow up Benjie palmer MD Cardiology Follow up Benjie palmer MD Cardiology Follow up Benjie palmer MD Cardiology Follow up :2130 S table without angina. 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 Stress test 09/02/20 was negative for inducible ischemia with normal LVEF. Benjie Nunez MD Cardiology Follow up :neg ehco N O AAA N OOSA ON IHS HX OF NML TSH and iron and pro and vit d and b12 Benjie Nunez MD Cardiology follow up :NO AAA N OOSA ON IHS N EG NUC 2020 H X OF NML TSH and iron and pro and vit d and b12 Jairon Bueno NP Cardiology follow up :Previously had lost about 40 lbs on Adipex, but gained the weight back after running out in January of this year. Will refill Adipex. Jairon Bueno NP Cardiology follow up :History of mild MR, but has resolved on his most recent echocardiogram in 2019. Also has history of diastolic dysfunction. Repeat echocardiogram for monitoring. Jairon Bueno NP Cardiology follow up :Quit when he had stroke. Continues complete cessation. Jairon Bueno NP Cardiology follow up :Has had residual numbness on the left arm. Otherwise no residual deficits. Jairon Bueno NP Cardiology follow up :08/02/2020 TChol 158, Trigs 73, HDL 63, LDL 80. Continues on atorvastatin, Zetia, and newly started Nexletol. Will recheck lipid panel next visit with LDL goal of <70 Jairon Bueno NP Cardiology follow up :BP is above goal today. He states he has not been taking the HCTZ since last year. He also states he has only been taking the carvedilol once a day instead of twice per day. Will refill his HCTZ, he had labs in the last month that showed potassium 4.9 and Cr 1.1. Continue carvedilol, losartan. 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 Stress test 09/02/20 was negative for inducible ischemia with normal LVEF. Continue on aspirin, clopidogrel and continue risk factor modification as noted below. Jairon Bueno NP fu :neg nuc 2019 Benjie Cabezas Cardiology follow up : n ml pro Benjie Nunez MD Cardiology follow up : N EGZIO AND CAROTID PLAQUE Benjie Nunez MD Cardiology follow up Benjie palmer MD Cardiology follow up Benjie palmer MD Cardiology follow up Benjie palmer MD Cardiology follow up :neg, on echo o ne plus on cath Benjie Nunez MD Cardiology follow up : N O AAA OR MARIE ON IHS AND NEG NUC 16 AND NML TSH and iron and pro and vit d and b12 Benjie Nunez MD Cardiology follow up : H is updated medication list for this problem includes: Zetia 10 Mg Oral Tablet (Ezetimibe) ..... One tab. daily Atorvastatin Calcium 80 Mg Oral Tablet (Atorvastatin calcium) ..... Take 1 tablet once a day. C HOL: 135 (01/04/2018) LDL: 67 MG/DL (CALC) (01/04/2018) HDL: 49 (01/04/2018) T (01/04/2018) Benjie Nunez MD Cardiology follow up Benjie palmer MD Cardiology Hospital Follow up :w ill try diet pills Benjie Nunez MD Cardiology Hospital Follow up :o ne plus on cath Benjie Nunez MD Cardiology Hospital Follow up : e cho and stress and check carotid, ALL NEG FOR CAD, state he had mi, cath 2018 mujlt 30% nml lv, caliucm hihg 2130 Benjie Nunez MD Cardiology Hospital Follow up :w ill incrase dioavan Benjie Nunez MD Cardiology Hospital Follow up Schuler newton Nunez MD [facility] Hospital Follow up :n ml pro Benjie Nunez MD Cardiology Hospital Follow up : H is updated medication list for this problem includes: Zetia 10 Mg Oral Tablet (Ezetimibe) ..... One tab. daily Atorvastatin Calcium 80 Mg Oral Tablet (Atorvastatin calcium) ..... Take 1 tablet once a day. C HOL: 135 (01/04/2018) LDL: 67 MG/DL (CALC) (01/04/2018) HDL: 49 (01/04/2018) T (01/04/2018) Benjie Nunez MD Cardiology Follow up Benjie palmer MD Cardiology Follow up : H is updated medication list for this problem includes: Atorvastatin Calcium 80 Mg Oral Tablet (Atorvastatin calcium) ..... Take 1 tablet once a day. Benjie Nunez MD Cardiology Follow up : w ill echo and stress and check carotid, ALL NEG FOR CAD Benjie Nunez MD Cardiology Follow up Benjie palmer MD Cardiology Follow up Benjie palmer MD Cardiology Follow up :nml pro Schuler newton Nunez MD Cardiology Follow up :NO AAA OR MARIE ON IHS AND NEG NUC 16 AND NML TSH and iron and pro and vit d and b12 Benjie Nunez MD Cardiology Follow up :NEGZIO AND CAROTID PLAQUE Benjie Nunez MD Cardiology Toniejudith Byrd STRIP CUTTING MACHINE OPERATOR Cardiology Toniejudith Byrd STRIP CUTTING MACHINE OPERATOR Cardiology:many sx will sequeira Delma Nunez MD Cardiology:will echo and stress and check carotid Benjie Nunez MD Cardiology:will echo Benjie palmer MD Cardiology:will rx H is updated medication list for this problem includes: Aspirin Adult Low Dose 81 Mg Oral Tbec (Aspirin) ..... One tab by mouth daily Benjie Nunez MD Cardiology:will check for aaa Ganga Nunez MD Cardiology: H is updated medication list for this problem includes: Atorvastatin Calcium 80 Mg Oral Tabs (Atorvastatin calcium) ..... Take 1 tablet once a day. Benjie Nunez MD Cardiology:will justino Benjie perez MD Cardiology:aldacone stopped Eugenia Nunez MD Date Name HEMOGLOBIN A1c CT, Coronary Calcium Score Complete Echo LIPID PANEL Microalb/Creatinine Urine, Random BASIC METABOLIC PANE L W/EGFR Stress Regadenoson Stress Cardiac PET-C T Stress Cardiac PET-C T Lipoprotein (a) BASIC METABOLIC PANE L W/EGFR PROBNP, N TERMINAL CRP, high sensitivit y Microalb/Creatinine Urine, Random Complete Echo Complete Echo BASIC METABOLIC PANE L W/EGFR RPM (remote patient monitoring) COVID19 High Affinit y Antibodies (LC) LIPID PANEL Complete Echo Stress Regadenoson Renal Artery Duplex Complete Echo PROTHROMBIN TIME WIT H INR LIPID PANEL CBC (INCLUDES DIFF/P LT) BASIC METABOLIC PANE L W/EGFR PROBNP, N TERMINAL COMPREHENSIVE METABO LIC PANEL, W/EGFR Complete Echo LIPID PANEL CT, Coronary Calcium Score Sleep Study Home IRON AND TOTAL IRON BINDING CAPACITY FERRITIN PROBNP, N TERMINAL Aortic Abdominal Ult rasound ZIO Holter Complete Echo Carotid Duplex Bilat eral STR - Adenosine BASIC METABOLIC PANE L W/EGFR VITAMIN D, 25-HYDROX Y, LC/MS/MS VITAMIN B12 HISTORY OF PROCEDURES Procedure Date Procedure Name Provider Procedure Notes S tatus Complex e/m visit add on Benjie Nunez MD completed EKG Benjie Nunez MD complete d EKG Benjie Nunez MD complete d EKG Benjie Nunez MD complete d EKG Benjie Nunez MD complete d EKG Benjie Nunez MD complete d EKG Benjie Nunez MD complete d SNOMED-CT: [id number] Current Medications Documented Benjie Nunez MD completed Stress EKG Nahed King MD complet ed Regadenoson, 4 units Nahed King MD completed Cardiolite, 2 units Nahed King MD completed SPECT Images Nahed King MD compl eted MAYELIN Nunez MD c ompleted EKG Benjie Nunez MD complete d SNOMED-CT: [id number] Current Medications Documented Benjie Nunez MD completed
--- OUTSIDE RECORDS SUMMARY | 2025-04-15 07:24 | XMS_ITS | Clinical Summary ---
Author Organization [facility] Address [address] [place] [address] Phone Care Team Providers Care Purchase Request Editor Name Role Phone Gavin Smith APRN, OIL PIPE INSPECTOR HELPER Primary Care Provider Dorian Melvin APRN, OIL PIPE INSPECTOR HELPER Unavailable Allergies Active Allergy Reactions Criticality Noted Date Comments Penicillins Unknown 04/10/2019 Medications GABAPENTIN PO Take 200 mg by mouth. Active atorvastatin (LIPITOR) 80 MG Tablet Take 80 mg by mouth daily. Active losartan (COZAAR) 100 MG Tablet Take 100 mg by mouth daily. Active clopidogrel (PLAVIX) 75 MG Tablet Take 75 mg by mouth daily. Active carvedilol (COREG) 3.125 MG Tablet Take 3.125 mg by mouth 2 times daily. Active Aspirin 81 MG Tablet Take 81 mg by mouth daily. Active Acetaminophen (TYLENOL ARTHRITIS PAIN PO) Take 650 mg by mouth as needed. Active Phentermine HCl 37.5 MG Capsule Take by mouth. Active topiramate (TOPAMAX) 100 MG Tablet Take 100 mg by mouth 2 times daily. Active ezetimibe (ZETIA) 10 MG Tablet Take 10 mg by mouth daily. Active amLODIPine (NORVASC) 10 MG Tablet 4 Active buPROPion (WELLBUTRIN) 150 MG XL tablet Take 150 mg by mouth daily. 4 Active Jardiance 10 MG Tablet Take 10 mg by mouth daily. 4 Active Icosapent Ethyl 1 g Capsule TAKE 2 CAPSULES BY MOUTH TWICE DAILY 4 Active naproxen (NAPROSYN) 500 MG Tablet Take 500 mg by mouth 2 times daily. 4 Active nitroGLYCERIN (NITROSTAT) 0.4 MG SL Tablet 0.4 mg by Sublingual route. Active famotidine (PEPCID) 10 MG Tablet Take 10 mg by mouth 2 times daily. Active [place] 450 MG Capsule Take by mouth. Acti ve Rivaroxaban (Xarelto) 2.5 MG Tablet Take by mouth. Activ e Tadalafil 5 MG TabletIndications :Erectile dysfunction due to arterial insufficiency Take 1 Tablet by mouth daily as needed for Erectile Dysfunction (Take 5 mg daily. May take 5-15 mg additional as needed for ED. Do not exceed more than 20 mg in 24 hours.). 45 Tablet 1 4 Active Active Problems Problem Noted Date Diagnosed Date UTI (urinary tract infection) 04/11/2019 Hydronephrosis of left kidney 04/11/2019 Resolved Problems Problem Noted Date Diagnosed Date Resolved Date Urethral stone 04/11/2019 04/14/2019 Acute kidney injury 04/11/2019 04/14/20 19 Encounters Date Type Department Care Team Description 03/03/2025 Telephone [facility] [address] [place] [address] Dorian Melvin, SCHOOL OCCUPATIONAL THERAPIST, OIL PIPE INSPECTOR HELPER from Last 3 Months Social History Tobacco Use Types Packs/Day Years Used Date Smoking Tobacco: Former Cigarettes Q uit: 1990 Smokeless Tobacco: Former Tobacco Cessation:Counseling Given: No Alcohol Use Standard Drinks/Week Comments Yes 0 (1 standard drink = 0.6 oz pur e alcohol) weekends Sexually Active Control Partners Comments Yes Sex and Gender Information Value Date Recorded Sex Assigned at Not on file 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 Gender Identity Not on file Sexual Orientation Not on file Last Filed Vital Signs Vital Sign Reading Time Taken Comments Blood Pressure 137/75 07/29/2024 9:17 AM CDT Pulse 52 07/29/2024 9:17 AM CDT Temperature 36.4 C (97.6 F) 06/07/2020 8:18 AM CDT Respiratory Rate 19 07/29/2024 9:17 AM CDT Oxygen Saturation 96% 06/07/2020 8:18 AM CDT Inhaled Oxygen Concentration - - Weight 85.3 kg (188 lb) 07/29/2024 9:17 AM CDT Height 182.9 cm (6') 07/29/2024 9:17 AM CDT Body Mass Index 25.5 07/29/2024 9:17 AM CDT Plan of Treatment Health Maintenance Due Date Last Done Comments Hepatitis C Virus (HCV) Screening 1950 Cologuard 1996 Colonoscopy 1996 Colorectal Cancer Screening 1996 Immunochemical Fecal Occult Blood 1996 AAA Screening Ultrasound 2016 SARS-COV-2 Immunization ( season) 2025 07/07/2024, 07/18/2023, 07/26/2022, Additional history exists Pneumococcal Immunization (50+ years) Completed 08/04/2019, 07/23/2018, 07/08/2016 Pneumococcal Immunization Combined Discontinued 08/04/2019, 07/23/2018, 07/08/2016 DTaP/Tdap/Td Immunization Discontinued 06/20/2021 TdaP Immunization Completed 06/20/2021 Zoster Immunization Completed 06/09/2022, Influenza Immunization Completed , 07/17/2023, 06/24/2022, Additional history exists Respiratory Syncytial Virus (RSV) Immunization (Adult) Completed 07/07/2024 Hepatitis B Immunization Aged Out No longer eligible based on patient's age to complete this topic Human Papillomavirus (HPV) Immunization Aged Out No longer eligible based on patient's age to complete this topic Meningococcal Immunization (ACWY) Aged Out No longer eligible based on patient's age to complete this topic Rotavirus Immunization Aged Out No lo nger eligible based on patient's age to complete this topic Insurance MEDICAID [place] MEDICARE C [facility] Advance Directives * Full Code (Latest Code Status on File) Date Activated Date Inactivated Comments 04/10/2019 10:22 PM 04/14/2019 8:57 PM CPR-Full Tr eatment: FULL ARREST: Attempt Resuscitation/CPR wit intubation and mechanical ventilation. PRE-ARREST: Use entire range of life support measures to stabilize the patient. Care Teams Purchase Request Editor Relationship Specialty Start Date End Date Gavin Smith APRN, OIL PIPE INSPECTOR HELPER [address] [place] [address] PCP - General Certified Nurse Practitioner 09/03/18 Dorian Melvin APRN, OIL PIPE INSPECTOR HELPER [address] [place] [address] Nurse Practitioner Advanced Practice Nurse 07/29/24
--- OUTSIDE RECORDS SUMMARY | 2025-04-15 07:24 | XMS_ITS | Clinical Summary ---
Author Organization [facility] Address [address] [place] [address] Phone Care Team Providers Care Binder And Wrapper Packer Name Role Phone Adam Ruiz MD Primary Care Pro vider Allergies Active Allergy Reactions Criticality Noted Date Comments Unclassified Drug Unknown 03/12/2015 SEASONAL Medications clopidogrel (PLAVIX) 75 mg Tablet Take 75 mg by mouth daily. 5 Active fluticasone (FLONASE) 50 mcg/spray [place], Suspension Administer 50 mcg in each nostril daily. 5 Active spironolactone (ALDACTONE) 25 mg tablet Take 25 mg by mouth daily. 5 Active Aspirin, Buffered 81 mg Tablet Take by mouth daily. Active acetaminophen (TYLENOL EXTRA STRENGTH) 500 mg tablet Take 500 mg by mouth daily. Active nitroglycerin (NITROSTAT) 0.4 mg Tablet, Sublingual Place 0.4 mg under tongue every 5 minutes as needed for Chest Pain. 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 Microhematuria 03/24/2015 Impotence 03/24/2015 Postprocedural male urethral stricture 5 Family History Medical History Relation Name Comments Heart Disease Father Prostate Cancer Father Asthma Mother Emphysema Mother Hypertension Other 1 Heart Disease Other 2 Relation Name Status Comments Father Alive Mother Other Other 1 Other 2 Social History Tobacco Use Types Packs/Day Years Used Date Smoking Tobacco: Former Cigarettes 3 25 0 03/12/1966 - 03/12/1991 Alcohol Use Standard Drinks/Week Comments Yes 10 (1 standard drink = 0.6 oz pu re alcohol) Sex and Gender Information Value Date Recorded Sex Assigned at Not on file 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 Gender Identity Not on file Sexual Orientation Not on file Occupation Industry Job Start Date Job End Date DISABLED Not on file Not on file Not on file Last Filed Vital Signs Vital Sign Reading Time Taken Comments Blood Pressure 150/80 03/29/2016 9:14 AM CDT Pulse 66 03/29/2016 9:14 AM CDT Temperature - - Respiratory Rate 16 03/24/2015 9:14 AM CDT Oxygen Saturation 96% 03/29/2016 9:14 AM CDT Inhaled Oxygen Concentration - - Weight 104.3 kg (230 lb) 03/29/2016 9:14 AM CDT Height 182.9 cm (6') 03/29/2016 9:14 AM CDT Body Mass Index 31.19 03/29/2016 9:14 AM CDT Plan of Treatment Health Maintenance Due Date Last Done Comments DTAP/TDAP/TD VACCINES (1 - Tdap) 1970 COLORECTAL SCREENING 1996 Colorectal Cancer Screening 1996 FIT-DNA Q 3 years 1996 FIT/FOBT Q 1 year 1996 Flex Sig/CT Colonography Q 5 years 1996 PNEUMOCOCCAL VACCINE 50+ YEARS (1 of 1 - PCV) 10/07/20 ZOSTER VACCINE (1 of 2) 2001 INFLUENZA VACCINE (#1) 2024 RSV VACCINE (60+ or ) (1 - 1-dose 75+ series) 2026 Insurance MEDICARE PART A AND B MEDICAID [place] Care Teams Binder And Wrapper Packer Relationship Specialty Start Date End Date Adam Ruiz MD PCP - General Family Practice 03/29/16
== END 2025-04-15 07:15 | disposition home or self-care (01) ==
LOC: ANHCARD 07:20
PROVIDERS: Visit Provider Internal Medicine Cardiovascular Disease
DX: R93.1 Abnormal findings on diagnostic imaging of heart and coronary circulation (principal); R00.1 Bradycardia, unspecified; I12.9 Hypertensive chronic kidney disease with stage 1 through stage 4 chronic kidney disease, or unspecified chronic kidney disease; N18.2 Chronic kidney disease, stage 2 (mild); E78.1 Pure hyperglyceridemia; I70.0 Atherosclerosis of aorta; I25.10 Atherosclerotic heart disease of native coronary artery without angina pectoris; E66.3 Overweight; Z20.89 Contact with and (suspected) exposure to other communicable diseases; Z13.9 Encounter for screening, unspecified
CPT/HCPCS: 93306